=== PATIENT | male | born 1980 | race Caucasian/White ===

== ENCOUNTER 2016-10-06 20:09 | Emergency (ER) | payer MEDICARE, MEDICAID ==
[~2016-10-06 20:09] MED LIST: ABIL15TA2 PO; ADDE15CA PO; ADDE1TAB22 PO; ADDE25CA PO; ALPRTAB4 PO; AMBI10TA PO; BACL10TA2 PO; BUPR150T11 PO; BUTR20DI2 TD; CELE-19 PO; CLONI1TA PO; DEPA500T2 PO; DILA2TAB PO; DOCQ100C PO; DULO30CA PO; FETZ1CAP4 PO; HYDR7.5T38 PO; LIDO5TD TD; LITH300C PO; LYRI200C PO; LYRI300C PO; METH10CO PO; OXYC-208 PO; OXYC-517 PO; OXYC15TA76 PO; PERCOCET PO; PRIS100T PO; SOMA350T PO; STRA18CA PO; TIZA4CAP3 PO; TRAZ50TA2 PO; ULTR50TA PO; XANA1TAB2 PO; XANA2TAB2 PO; ZOFR20TA PO; [UNRECOGNIZED DRUG - CODE] PO
[2016-10-06] MEDS ORDERED: KETOROLAC 30 MG/ML VIAL (J1885) As Ordered ONE (20:54)
[2016-10-06] MEDS ORDERED: METHOCARBAMOL 1,000 MG/10 ML VIAL (J2800) As Ordered ONE (20:54)
--- NOTE | 2016-10-06 21:52 | EDDOCDS ---
Physician Documentation [facility] Name: Michael Jimenez Age: 36 yrs Sex: Male : 1980 Arrival Date: 10/06/2016 Time: 20:09 Bed PR Private MD: Rica Vazquez D Disposition: 10/06/16 21:40 Discharged to Home/Self Care. Impression: Low back pain, Pain in right hand. - Condition is Stable. - Discharge Instructions: Chronic Back Pain, Back Pain, Adult, [id number]. - Prescriptions for Robaxin- 750 750 mg Oral Tablet - take 1 tablet by ORAL route every 6 hours As needed; 40 tablet. - Medication Reconciliation, Local Pharmacy Hours form. - Follow up: Rica Vazquez; When: Call to arrange an appointment; Reason: Further diagnostic work-up, Recheck today's complaints, Continuance of care. - Problem is an acute exacerbation. - Symptoms are unchanged. Historical: - Allergies: Fentanyl"my heart stopped"; Neurontin (legs swell); PENICILLINS (Hives); - Home Meds: 1. Dilaudid (PF) 2 mg/mL injection soln 2 mg every 24 hours via pain pump 2. Adderall XR 25 mg Oral cp24 1 cap twice a day 3. Ambien 10 mg Oral tab 1 tab once daily 4. pregabalin 200 mg Oral cap 3 times per day 5. Xanax 2 mg oral tab at night 6. Xanax 1 mg Oral tab 1 tab AM - PMHx: ADD; Anxiety; RSD; - PSHx: back surgery x 4; Knee surgery- Left; Left Ankle Surgery; - Social history: Smoking status: Patient states former smoker of tobacco. Patient/guardian denies using alcohol, street drugs, No barriers to communication noted, The patient speaks fluent Macanese. - Family history: Not pertinent. - : The pt / caregiver states he / she is not on anticoagulants. Home medication list is obtained from the patient. - Exposure Risk Screening:: None identified. Vital Signs: 10/06 20:10 BP 139 / 84; Pulse 95; Resp 18 S; Temp 97.6(O); Pulse Ox 100% on R/A; Weight 104.33 kg gr2 / 230.01 lbs (R); Height 6 ft. 2 in. (187.96 cm) (R); Pain 9/10; 21:48 BP 150 / 87; Pulse 80; Resp 18; Pulse Ox 100% ; Pain 7/10; slm 21:48 Pain 7/10; slm 21:48 Pain 7/10; slm 20:10 Body Mass Index 29.53 (104.33 kg, 187.96 cm) gr2 MDM: 20:47 ketorolac 30 mg IM once ordered. btw 20:47 Robaxin 250 mg IM once ordered. btw 20:51 Spine. Lumbosacral, Complete Ordered. EDMS 20:51 Hand, Complete Ordered. EDMS 20:54 Financial registration complete. [email or web address] 20:55 [facility] Payment Agreement was scanned into [employer] and attached to record. [email or web address] Administered Medications: 21:00 Drug: ketorolac 30 mg [ketorolac 30 mg/mL (1 mL) injection solution (1 mL)] Route: IM; slm Site: right gluteus; 21:48 Follow up: Pain 7/10 Adult slm 21:00 Drug: Robaxin 250 mg [Robaxin 100 mg/mL injection solution (2.5 mL)] Route: IM; Site: slm left gluteus; 21:48 Follow up: Pain 7/10 Adult slm Signatures: Dispatcher [employer] EDMS Leo Cardenas PA PA btw Karol Caballero,PORTER HEAD PORTER HEAD slm Jaylen Hernandez,RN RN mb9 Maricarmen Jonas, Reg Reg [email or web address] The chart was reviewed and I authenticate all verbal orders and agree with the evaluation and treatment provided.Attachments: 20:55 [facility] Payment Agreement [email or web address] MTDD
--- NOTE | 2016-10-06 21:52 | EDDOCDS ---
Nurse's Notes [facility] Name: Michael Jimenez Age: 36 yrs Sex: Male : 1980 Arrival Date: 10/06/2016 Time: 20:09 Bed PR1 / 25 Private MD: Rica Vazquez D Diagnosis: Low back pain;Pain in right hand Presentation: 10/06 20:20 Presenting complaint: Patient states: "I fell on some ice in front of my house on the mb9 stairs. I hit my spine and my legs hurt and are swollen and I hurt my arm". Adult Sepsis Screening: The patient does not have new or worsening altered mentation. Patient's respiratory rate is less than 22. Systolic blood pressure is greater than 100. Patient has a qSOFA score of 0- Negative Sepsis Screen. Suicide/Homicide risk assessment- the patient denies having any suicidal and/or homicidal ideations and does not present with any other emotional, behavioral or mental health complaints. Status: Patient is not a executive services administrator or dependent. Transition of care: patient was not received from another setting of care. 20:20 Acuity: PONCHO Level 3 mb9 20:20 Method Of Arrival: Walkin/Carried/Asstd mb9 Triage Assessment: 20:24 General: Appears uncomfortable, Behavior is fussy. Pain: Location: right merritt and left mb9 merritt. HIV screening NA for this visit Offered previously. Respiratory: Airway is patent Respiratory effort is even, unlabored. Musculoskeletal: Bony deformity noted of right hand. Historical: - Allergies: Fentanyl"my heart stopped"; Neurontin (legs swell); PENICILLINS (Hives); - Home Meds: 1. Dilaudid (PF) 2 mg/mL injection soln 2 mg every 24 hours via pain pump 2. Adderall XR 25 mg Oral cp24 1 cap twice a day 3. Ambien 10 mg Oral tab 1 tab once daily 4. pregabalin 200 mg Oral cap 3 times per day 5. Xanax 2 mg oral tab at night 6. Xanax 1 mg Oral tab 1 tab AM - PMHx: ADD; Anxiety; RSD; - PSHx: back surgery x 4; Knee surgery- Left; Left Ankle Surgery; - Social history: Smoking status: Patient states former smoker of tobacco. Patient/guardian denies using alcohol, street drugs, No barriers to communication noted, The patient speaks fluent Nepali. - Family history: Not pertinent. - : The pt / caregiver states he / she is not on anticoagulants. Home medication list is obtained from the patient. - Exposure Risk Screening:: None identified. Screenin:49 Screening information is obtained from the patient. Fall risk: No risks identified. slm Assistance ADL's: requires no assistance with activities of daily living. Abuse/DV Screen: The patient / caregiver reports he/she is: not in a situation that causes fear, pain or injury. Nutritional screening: No deficits noted. Advance Directives: Currently, there is no health care proxy. There is no active DNR order. There is no living will. There is no Power of Company Dancer. Advance directive information has not previously been placed in an [facility] medical record. Further advance directive information is declined. home support is adequate. Assessment: 21:49 General: Appears in no apparent distress, comfortable, Behavior is appropriate for age, slm cooperative. General: no distress noted ambulated with steady gait . Neurological: Level of Consciousness is awake, alert, obeys commands. Vital Signs: 20:10 BP 139 / 84; Pulse 95; Resp 18 S; Temp 97.6(O); Pulse Ox 100% on R/A; Weight 104.33 kg gr2 (R); Height 6 ft. 2 in. (187.96 cm) (R); Pain 9/10; 21:48 BP 150 / 87; Pulse 80; Resp 18; Pulse Ox 100% ; Pain 7/10; slm 21:48 Pain 7/10; slm 21:48 Pain 7/10; slm 20:10 Body Mass Index 29.53 (104.33 kg, 187.96 cm) gr2 Vitals: 20:10 Log In Time: October 06, 2016 at 20:10. gr2 ED Course: 20:10 Patient visited by Savanah Crocker. gr2 20:10 Rica Vazquez is Private Physician. gr2 20:10 Patient moved to Waiting gr2 20:11 Patient visited by Savanah Corcker. gr2 20:11 Patient moved to Pre RCE gr2 20:21 Triage Initiated mb9 20:41 Patient moved to Triage 2 m 20:43 Leo Cardenas PA is PHCP. btw 20:43 José Gamboa DO is Attending Physician. btw 20:43 Patient visited by Leo Cardenas PA. btw 20:55 [facility] Payment Agreement was scanned into [employer] and attached to record. [email or web address] 20:58 Patient name changed from Michael\\S\\\\S\\Wetherell\\S\\ to Michael\\S\\ \\S\\Wetherell. EDMS 21:09 Patient moved to TR1 slm 21:13 Patient moved to Radiology aris 21:39 Rica Vazquez is Referral Physician. btw 21:39 Patient moved to PR1 / 25 slm 21:50 No IV's were initiated during this patient's visit. No procedures done that require slm assistance. 21:51 The patient / caregiver is instructed regarding the plan of care and ED course. Patient slm has correct armband on for positive identification. Bed in low position. Call light in reach. Administered Medications: 21:00 Drug: ketorolac 30 mg [ketorolac 30 mg/mL (1 mL) injection solution (1 mL)] Route: IM; slm Site: right gluteus; 21:48 Follow up: Pain 7/10 Adult slm 21:00 Drug: Robaxin 250 mg [Robaxin 100 mg/mL injection solution (2.5 mL)] Route: IM; Site: slm left gluteus; 21:48 Follow up: Pain 7/10 Adult slm Order Results: There are currently no results for this order. Outcome: 21:40 Discharge ordered by Provider. btw 21:50 Discharge Assessment: Patient awake, alert and oriented x 3. No cognitive and/or slm functional deficits noted. Patient verbalized understanding of disposition instructions. patient administered narcotics - no. The following High Risk Discharge criteria are identified: None. Discharged to home ambulatory. Condition: good. Discharge instructions given to patient, Instructed on discharge instructions, follow up and referral plans. medication usage, Demonstrated understanding of instructions, medications, Pt was receptive of discharge instructions/ teaching. Prescriptions given X 1. No special radiology studies were completed. Property :Personal belongings accompany Pt. 21:51 Patient left the ED. slm Signatures: Dispatcher [employer] EDMS Kun Alvarez aris Leo Cardenas PA PA btw Savanah Crocker gr2 Karol CaballeroMARKETING ACCOUNT MANAGER MARKETING ACCOUNT MANAGER slJaylen Handy,RN RN mb9 Maricarmen Jonas, Reg Reg [email or web address] MTDD
--- NOTE | 2016-10-07 08:42 | REP ---
Right hand series: Four views. History: Trauma. Findings: Four views of the right hand show no evidence of fracture, subluxation or opaque foreign body. There are old appearing erosive changes at the second and fifth metacarpophalangeal joint. These are unchanged from the December 03, 2015 prior study. Impression: No acute bony abnormality. Signed by Duke Martinez MD 10/07/2016 02:25 P
--- NOTE | 2016-10-07 08:43 | REP ---
Lumbar spine series: Five views. History: Trauma. Findings: Five views of the lumbar spine are compared with the July 30, 2015 prior study. There is a mild dextroconvex curvature in the lumbar spine. Lumbar vertebral body heights are preserved. Alignment is normal. Disc spaces are maintained. Pedicles and posterior elements are intact. There is no evidence of spondylolysis or spondylolisthesis. Psoas margins are symmetric. There is an electronic device overlying the sacrum on one of the oblique radiographs apparently in the right lower abdomen. SI joints are intact. Impression: Negative lumbar spine series. No fracture seen. Signed by Duke Martinez MD 10/07/2016 02:25 P
--- NOTE | 2016-10-08 22:52 | EDDOCDS ---
Physician Documentation [facility] Name: Michael Jimenez Age: 36 yrs Sex: Male : 1980 Arrival Date: 10/06/2016 Time: 20:09 Bed PR Private MD: Rica Vazquez D Disposition: 10/06/16 21:40 Discharged to Home/Self Care. Impression: Low back pain, Pain in right hand. - Condition is Stable. - Discharge Instructions: Chronic Back Pain, Back Pain, Adult, [id number]. - Prescriptions for Robaxin- 750 750 mg Oral Tablet - take 1 tablet by ORAL route every 6 hours As needed; 40 tablet. - Medication Reconciliation, Local Pharmacy Hours form. - Follow up: Rica Vazquez; When: Call to arrange an appointment; Reason: Further diagnostic work-up, Recheck today's complaints, Continuance of care. - Problem is an acute exacerbation. - Symptoms are unchanged. Historical: - Allergies: Fentanyl"my heart stopped"; Neurontin (legs swell); PENICILLINS (Hives); - Home Meds: 1. Dilaudid (PF) 2 mg/mL injection soln 2 mg every 24 hours via pain pump 2. Adderall XR 25 mg Oral cp24 1 cap twice a day 3. Ambien 10 mg Oral tab 1 tab once daily 4. pregabalin 200 mg Oral cap 3 times per day 5. Xanax 2 mg oral tab at night 6. Xanax 1 mg Oral tab 1 tab AM - PMHx: ADD; Anxiety; RSD; - PSHx: back surgery x 4; Knee surgery- Left; Left Ankle Surgery; - Social history: Smoking status: Patient states former smoker of tobacco. Patient/guardian denies using alcohol, street drugs, No barriers to communication noted, The patient speaks fluent Cymro. - Family history: Not pertinent. - : The pt / caregiver states he / she is not on anticoagulants. Home medication list is obtained from the patient. - Exposure Risk Screening:: None identified. Vital Signs: 10/06 20:10 BP 139 / 84; Pulse 95; Resp 18 S; Temp 97.6(O); Pulse Ox 100% on R/A; Weight 104.33 kg gr2 / 230.01 lbs (R); Height 6 ft. 2 in. (187.96 cm) (R); Pain 9/10; 21:48 BP 150 / 87; Pulse 80; Resp 18; Pulse Ox 100% ; Pain 7/10; slm 21:48 Pain 7/10; slm 21:48 Pain 7/10; slm 20:10 Body Mass Index 29.53 (104.33 kg, 187.96 cm) gr2 MDM: 20:47 ketorolac 30 mg IM once ordered. btw 20:47 Robaxin 250 mg IM once ordered. btw 20:51 Spine. Lumbosacral, Complete Ordered. EDMS 20:51 Hand, Complete Ordered. EDMS 20:54 Financial registration complete. [email or web address] 20:55 [facility] Payment Agreement was scanned into [employer] and attached to record. ks16 10/07 12:22 T-Sheet-- Draft Copy was scanned into [employer] and attached to record. gb Administered Medications: 10/06 21:00 Drug: ketorolac 30 mg [ketorolac 30 mg/mL (1 mL) injection solution (1 mL)] Route: IM; slm Site: right gluteus; 21:48 Follow up: Pain 7/10 Adult slm 21:00 Drug: Robaxin 250 mg [Robaxin 100 mg/mL injection solution (2.5 mL)] Route: IM; Site: slm left gluteus; 21:48 Follow up: Pain 7/10 Adult slm Signatures: Dispatcher [employer] EDMS Funmi Mccullough, Reg Reg gb Leo Cardenas PA PA btw Karol Caballero LPN LPN sl Jaylen Hernandez RN RN mbMaricarmen Fry, Reg Reg ks16 The chart was reviewed and I authenticate all verbal orders and agree with the evaluation and treatment provided.Attachments: 20:55 [facility] Payment Agreement [email or web address] 10/07 12:22 T-Sheet-- Draft Copy gb Chart Complete MTDD
--- NOTE | 2016-10-08 22:52 | EDDOCDS ---
Nurse's Notes [facility] Name: Michael Jimenez Age: 36 yrs Sex: Male : 1980 Arrival Date: 10/06/2016 Time: 20:09 Bed PR1 / 25 Private MD: Rica Vazquez D Diagnosis: Low back pain;Pain in right hand Presentation: 10/06 20:20 Presenting complaint: Patient states: "I fell on some ice in front of my house on the mb9 stairs. I hit my spine and my legs hurt and are swollen and I hurt my arm". Adult Sepsis Screening: The patient does not have new or worsening altered mentation. Patient's respiratory rate is less than 22. Systolic blood pressure is greater than 100. Patient has a qSOFA score of 0- Negative Sepsis Screen. Suicide/Homicide risk assessment- the patient denies having any suicidal and/or homicidal ideations and does not present with any other emotional, behavioral or mental health complaints. Status: Patient is not a meter and service line inspector or dependent. Transition of care: patient was not received from another setting of care. 20:20 Acuity: PONCHO Level 3 mb9 20:20 Method Of Arrival: Walkin/Carried/Asstd mb9 Triage Assessment: 20:24 General: Appears uncomfortable, Behavior is fussy. Pain: Location: right merritt and left mb9 merritt. HIV screening NA for this visit Offered previously. Respiratory: Airway is patent Respiratory effort is even, unlabored. Musculoskeletal: Bony deformity noted of right hand. Historical: - Allergies: Fentanyl"my heart stopped"; Neurontin (legs swell); PENICILLINS (Hives); - Home Meds: 1. Dilaudid (PF) 2 mg/mL injection soln 2 mg every 24 hours via pain pump 2. Adderall XR 25 mg Oral cp24 1 cap twice a day 3. Ambien 10 mg Oral tab 1 tab once daily 4. pregabalin 200 mg Oral cap 3 times per day 5. Xanax 2 mg oral tab at night 6. Xanax 1 mg Oral tab 1 tab AM - PMHx: ADD; Anxiety; RSD; - PSHx: back surgery x 4; Knee surgery- Left; Left Ankle Surgery; - Social history: Smoking status: Patient states former smoker of tobacco. Patient/guardian denies using alcohol, street drugs, No barriers to communication noted, The patient speaks fluent Wolof. - Family history: Not pertinent. - : The pt / caregiver states he / she is not on anticoagulants. Home medication list is obtained from the patient. - Exposure Risk Screening:: None identified. Screenin:49 Screening information is obtained from the patient. Fall risk: No risks identified. slm Assistance ADL's: requires no assistance with activities of daily living. Abuse/DV Screen: The patient / caregiver reports he/she is: not in a situation that causes fear, pain or injury. Nutritional screening: No deficits noted. Advance Directives: Currently, there is no health care proxy. There is no active DNR order. There is no living will. There is no Power of Marine Rigger. Advance directive information has not previously been placed in an [facility] medical record. Further advance directive information is declined. home support is adequate. Assessment: 21:49 General: Appears in no apparent distress, comfortable, Behavior is appropriate for age, slm cooperative. General: no distress noted ambulated with steady gait . Neurological: Level of Consciousness is awake, alert, obeys commands. Vital Signs: 20:10 BP 139 / 84; Pulse 95; Resp 18 S; Temp 97.6(O); Pulse Ox 100% on R/A; Weight 104.33 kg gr2 (R); Height 6 ft. 2 in. (187.96 cm) (R); Pain 9/10; 21:48 BP 150 / 87; Pulse 80; Resp 18; Pulse Ox 100% ; Pain 7/10; slm 21:48 Pain 7/10; slm 21:48 Pain 7/10; slm 20:10 Body Mass Index 29.53 (104.33 kg, 187.96 cm) gr2 Vitals: 20:10 Log In Time: October 06, 2016 at 20:10. gr2 ED Course: 20:10 Patient visited by Savanah Crocker. gr2 20:10 Rica Vazquez is Private Physician. gr2 20:10 Patient moved to Waiting gr2 20:11 Patient visited by Savanah Crocker. gr2 20:11 Patient moved to Pre RCE gr2 20:21 Triage Initiated mb9 20:41 Patient moved to Triage 2 m 20:43 Leo Cardenas PA is PHCP. btw 20:43 José Gamboa DO is Attending Physician. btw 20:43 Patient visited by Leo Cardenas PA. btw 20:55 [facility] Payment Agreement was scanned into [employer] and attached to record. ks16 20:58 Patient name changed from Michael\\S\\\\S\\Wetherell\\S\\ to Michael\\S\\ \\S\\Wetherell. EDMS 21:09 Patient moved to TR1 slm 21:13 Patient moved to Radiology aris 21:39 Rica Vazquez is Referral Physician. btw 21:39 Patient moved to PR1 / 25 slm 21:50 No IV's were initiated during this patient's visit. No procedures done that require slm assistance. 21:51 The patient / caregiver is instructed regarding the plan of care and ED course. Patient slm has correct armband on for positive identification. Bed in low position. Call light in reach. 02/06 08:57 Hand, Complete Returned. EDMS 08:57 Spine. Lumbosacral, Complete Returned. EDMS 12:22 T-Sheet-- Draft Copy was scanned into [employer] and attached to record. gb Administered Medications: 0205 21:00 Drug: ketorolac 30 mg [ketorolac 30 mg/mL (1 mL) injection solution (1 mL)] Route: IM; slm Site: right gluteus; 21:48 Follow up: Pain 7/10 Adult slm 21:00 Drug: Robaxin 250 mg [Robaxin 100 mg/mL injection solution (2.5 mL)] Route: IM; Site: slm left gluteus; 21:48 Follow up: Pain 7/10 Adult slm Order Results: Radiology Order: Spine. Lumbosacral, Complete Test: Spine. Lumbosacral, Complete REASON FOR EXAMINATION: Trauma; Lumbar spine series: Five views.; ; History: Trauma.; ; Findings: Five views of the lumbar spine are compared with the July 30, 2015; prior study. There is a mild dextroconvex curvature in the lumbar spine. Lumbar; vertebral body heights are preserved. Alignment is normal. Disc spaces are; maintained. Pedicles and posterior elements are intact. There is no evidence of; spondylolysis or spondylolisthesis. Psoas margins are symmetric. There is an; electronic device overlying the sacrum on one of the oblique radiographs; apparently in the right lower abdomen. SI joints are intact.; ; Impression:; ; Negative lumbar spine series. No fracture seen.; ; ; Signed by; Duke Martinez MD 10/07/2016 02:25 P; Radiology Order: Hand, Complete Test: Hand, Complete REASON FOR EXAMINATION: Trauma; Right hand series: Four views.; ; History: Trauma.; ; Findings: Four views of the right hand show no evidence of fracture, subluxation; or opaque foreign body. There are old appearing erosive changes at the second; and fifth metacarpophalangeal joint. These are unchanged from the December 03, 2015; prior study.; ; Impression:; ; No acute bony abnormality.; ; ; Signed by; Duke Martinez MD 10/07/2016 02:25 P; Outcome: 21:40 Discharge ordered by Provider. btw 21:50 Discharge Assessment: Patient awake, alert and oriented x 3. No cognitive and/or slm functional deficits noted. Patient verbalized understanding of disposition instructions. patient administered narcotics - no. The following High Risk Discharge criteria are identified: None. Discharged to home ambulatory. Condition: good. Discharge instructions given to patient, Instructed on discharge instructions, follow up and referral plans. medication usage, Demonstrated understanding of instructions, medications, Pt was receptive of discharge instructions/ teaching. Prescriptions given X 1. No special radiology studies were completed. Property :Personal belongings accompany Pt. 21:51 Patient left the ED. slm Signatures: Dispatcher [employer] EDMS Kun Alvarez Gloria, Reg Reg gb Leo Cardenas PA PA btw Savanah Crocker gr2 Karol Caballero LPN LPN [facility] Jaylen Hernandez,CASTILLO RN mb9 Maricarmen Jonas, Reg Reg [email or web address] Chart Complete MTDD
--- NOTE | 2016-10-08 22:52 | EDDOCDS ---
Physician Documentation [facility] Name: Michael Jimenez Age: 36 yrs Sex: Male : 1980 Arrival Date: 10/06/2016 Time: 20:09 Bed PR Private MD: Rica Vazquez D Disposition: 10/06/16 21:40 Discharged to Home/Self Care. Impression: Low back pain, Pain in right hand. - Condition is Stable. - Discharge Instructions: Chronic Back Pain, Back Pain, Adult, [id number]. - Prescriptions for Robaxin- 750 750 mg Oral Tablet - take 1 tablet by ORAL route every 6 hours As needed; 40 tablet. - Medication Reconciliation, Local Pharmacy Hours form. - Follow up: Rica Vazquez; When: Call to arrange an appointment; Reason: Further diagnostic work-up, Recheck today's complaints, Continuance of care. - Problem is an acute exacerbation. - Symptoms are unchanged. Historical: - Allergies: Fentanyl"my heart stopped"; Neurontin (legs swell); PENICILLINS (Hives); - Home Meds: 1. Dilaudid (PF) 2 mg/mL injection soln 2 mg every 24 hours via pain pump 2. Adderall XR 25 mg Oral cp24 1 cap twice a day 3. Ambien 10 mg Oral tab 1 tab once daily 4. pregabalin 200 mg Oral cap 3 times per day 5. Xanax 2 mg oral tab at night 6. Xanax 1 mg Oral tab 1 tab AM - PMHx: ADD; Anxiety; RSD; - PSHx: back surgery x 4; Knee surgery- Left; Left Ankle Surgery; - Social history: Smoking status: Patient states former smoker of tobacco. Patient/guardian denies using alcohol, street drugs, No barriers to communication noted, The patient speaks fluent Spanish. - Family history: Not pertinent. - : The pt / caregiver states he / she is not on anticoagulants. Home medication list is obtained from the patient. - Exposure Risk Screening:: None identified. Vital Signs: 10/06 20:10 BP 139 / 84; Pulse 95; Resp 18 S; Temp 97.6(O); Pulse Ox 100% on R/A; Weight 104.33 kg gr2 / 230.01 lbs (R); Height 6 ft. 2 in. (187.96 cm) (R); Pain 9/10; 21:48 BP 150 / 87; Pulse 80; Resp 18; Pulse Ox 100% ; Pain 7/10; slm 21:48 Pain 7/10; slm 21:48 Pain 7/10; slm 20:10 Body Mass Index 29.53 (104.33 kg, 187.96 cm) gr2 MDM: 20:47 ketorolac 30 mg IM once ordered. btw 20:47 Robaxin 250 mg IM once ordered. btw 20:51 Spine. Lumbosacral, Complete Ordered. EDMS 20:51 Hand, Complete Ordered. EDMS 20:54 Financial registration complete. [email or web address] 20:55 [facility] Payment Agreement was scanned into [employer] and attached to record. [email or web address] 10/07 12:22 T-Sheet-- Draft Copy was scanned into [employer] and attached to record. gb Administered Medications: 10/06 21:00 Drug: ketorolac 30 mg [ketorolac 30 mg/mL (1 mL) injection solution (1 mL)] Route: IM; slm Site: right gluteus; 21:48 Follow up: Pain 7/10 Adult slm 21:00 Drug: Robaxin 250 mg [Robaxin 100 mg/mL injection solution (2.5 mL)] Route: IM; Site: slm left gluteus; 21:48 Follow up: Pain 7/10 Adult slm Signatures: Dispatcher [employer] EDMS Funmi Mccullough, Reg Reg gb Leo Cardenas PA PA btw Karol Caballero LPN LPN sl Jaylen Hernandez RN RN mbMaricarmen Fry, Reg Reg [email or web address] The chart was reviewed and I authenticate all verbal orders and agree with the evaluation and treatment provided.Attachments: 20:55 [facility] Payment Agreement [email or web address] 10/07 12:22 T-Sheet-- Draft Copy gb Chart Complete MTDD
== END 2016-10-06 21:51 | disposition home or self-care (01) ==
LOC: M ED 20:09
DX: M25.541 Pain in joints of right hand (principal); M54.5 Low back pain; W00.1XXA Fall from stairs and steps due to ice and snow, initial encounter; Y92.096 Garden or yard of other non-institutional residence as the place of occurrence of the external cause; Y93.89 Activity, other specified; Y99.8 Other external cause status; F90.8 Attention-deficit hyperactivity disorder, other type; F41.9 Anxiety disorder, unspecified; G90.50 Complex regional pain syndrome I, unspecified; Z79.899 Other long term (current) drug therapy; Z79.891 Long term (current) use of opiate analgesic; Z88.8 Allergy status to other drugs, medicaments and biological substances; Z88.0 Allergy status to penicillin; F17.210 Nicotine dependence, cigarettes, uncomplicated
CPT/HCPCS: 72110; 73130; 96372; 99283; J1885; J2800

== ENCOUNTER 2016-12-03 09:30 | Emergency (ER) | payer MEDICARE, MEDICAID ==
[~2016-12-03] VITALS: Ht 188 cm; Wt 95.7 kg
[2016-12-03] MEDS ORDERED: ALPR2TAB3 PO (09:47)
[2016-12-03] MEDS ORDERED: DILA1LIQ IT (09:52)
[2016-12-03] MEDS ORDERED: ACETAMINOPHEN TAB 650MG DOSE (2X325MG) PO ONE (10:00)
[2016-12-03] MEDS: ALBUTEROL SULFATE 2.5 MG/0.5 ML INH NEB SOLN NEB PRN ×3 (10:13→11:27)
[2016-12-03 10:21] LABS: BASO % 0.3 % (0.0-1.0); EOS # 0.4 K/mm3 (0.0-0.50); EOS % 2.7 % (0.0-3.0); LARGE UNSTAINED CELL # 0.1 K/mm3 (0.0-0.4); LARGE UNSTAINED CELL % 0.9 % (0.0-4.0); LYMPH # 1.4 K/mm3 (1.5-4.5); LYMPH % 9.4 % (24.0-44.0); MEAN CORPUSCULAR HEMOGLOBIN 32.9 pg (27.0-33.0); MEAN CORPUSCULAR HGB CONC 34.1 g/dl (32.0-36.5); MEAN CORPUSCULAR VOLUME 96.5 fl (80.0-96.0); MONO # 0.8 K/mm3 (0.0-0.8); MONO % 5.8 % (0.0-5.0); NEUTROPHILS # 10.6 K/mm3 (1.8-7.7); NEUTROPHILS % 80.8 % (36.0-66.0); PLATELET COUNT, AUTOMATED 199 k/mm3 (150-450); RED CELL DISTRIBUTION WIDTH 12.8 % (11.5-14.5); WHITE BLOOD COUNT 13.1 K/mm3 (4.0-10.0)
[2016-12-03 10:37] LABS: ANION GAP 7 MEQ/L (8-16); BLOOD UREA NITROGEN 15 MG/DL (7-18); CALCIUM LEVEL 8.9 MG/DL (8.5-10.1); CARBON DIOXIDE LEVEL 26 MEQ/L (21-32); CHLORIDE LEVEL 105 MEQ/L (98-107); CREATININE FOR GFR 0.95 MG/DL (0.70-1.30); GLOMERULAR FILTRATION RATE > 60.0 (>60); GLUCOSE, FASTING 108 MG/DL (70-105); POTASSIUM SERUM 3.5 MEQ/L (3.5-5.1); SODIUM LEVEL 138 MEQ/L (136-145)
[2016-12-03] MEDS ORDERED: methylPREDNISolone INJ 125 MG/2 ML VIAL (J2930) IV ONE (11:00)
[2016-12-03] MEDS ORDERED: NS 500 ML IV ONE (11:00)
--- NOTE | 2016-12-03 11:06 | REP ---
PORTABLE CHEST: AP portable view of the chest is performed. There is no acute infiltrate. The heart is not significantly enlarged. The mediastinal silhouette is unremarkable and unchanged. IMPRESSION: No acute infiltrate. Signed by Clifford Wisdom MD 12/03/2016 04:37 P
[2016-12-03] MEDS ORDERED: ISOVUE-370 76% 100ML VIAL (Q9967) As Ordered ONE (11:17)
--- NOTE | 2016-12-03 12:10 | REP ---
CT of the chest CT pulmonary angiography: Comparison studies are the chest CT dated 01/04/2016 and 04/14/2011. There is no embolus in the pulmonary trunk or in the central pulmonary arteries. There are no emboli in the pulmonary lobe or segment branches. There are no infiltrates or effusions. There is a minor zone of scarring in the deep posterior sulcus of the left hemithorax, unchanged from 04/14/2011. There is no mediastinal, hilar or axillary lymph node enlargement. The thoracic aorta is unremarkable. Cardiac size is normal. There is no pericardial effusion. The visualized upper abdominal contents are unremarkable. Impression: There is no pulmonary embolus. Lung zamora are clear except for a small focal zone of parenchymal scarring in the deep sulcus of the left lower lobe, unchanged from 04/14/2011. There are no pleural effusions. No adenopathy. No masses. Signed by Clifford Lockwood MD 12/03/2016 12:01 P
[2016-12-03] MEDS ORDERED: PROA1AER INH (13:22)
[2016-12-03] MEDS ORDERED: [UNRECOGNIZED DRUG - CODE] PO (13:23)
[2016-12-03 13:40] VITALS: BP 122/73
--- NOTE | 2016-12-04 21:31 | ECGEPIP ---
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
== END 2016-12-03 13:54 | disposition home or self-care (01) ==
LOC: M ED 10:20
DX: J06.9 Acute upper respiratory infection, unspecified (principal); F31.9 Bipolar disorder, unspecified; F41.9 Anxiety disorder, unspecified; G90.50 Complex regional pain syndrome I, unspecified; Z87.891 Personal history of nicotine dependence
CPT/HCPCS: 36415; 71010; 71275; 80048; 83605; 83880; 85025; 87040; 87804; 93005; 93041; 94640; 94760; 96361; 96374; 99285; J2930; Q9967

== ENCOUNTER 2016-12-21 12:14 | Emergency (ER) | payer MEDICARE, MEDICAID ==
[~2016-12-21] VITALS: Ht 188 cm; Wt 95.3 kg
[~2016-12-21 12:14] MED LIST changes: +ALPR2TAB3 PO; +DILA1LIQ IT; +PROA1AER INH; +[UNRECOGNIZED DRUG - CODE] PO
[2016-12-21] MEDS ORDERED: TYLE325T5 PO (12:26)
[2016-12-21] MEDS ORDERED: IBUP-1114 PO (12:26)
[2016-12-21] MEDS ORDERED: HYDROmorphone HCL 1 MG/ML SYRINGE (J1170) IM ONE (13:15)
--- NOTE | 2016-12-21 14:06 | REP ---
Right hand four views: There is a small bone cyst in the triquetrum. There is no fracture or dislocation. Mineralization and joint spaces are normal. There are no calcifications or foreign bodies. Impression: Negative right hand. There is a small bone cyst in the triquetrum ossicle. Signed by Clifford Lockwood MD 12/21/2016 01:57 P
[2016-12-21 14:15] VITALS: BP 118/86
== END 2016-12-21 14:23 | disposition home or self-care (01) ==
LOC: M ED 12:56
DX: S63.91XA Sprain of unspecified part of right wrist and hand, initial encounter (principal); W19.XXXA Unspecified fall, initial encounter; Y92.410 Unspecified street and highway as the place of occurrence of the external cause; Y93.9 Activity, unspecified; Y99.9 Unspecified external cause status; G89.29 Other chronic pain; F17.200 Nicotine dependence, unspecified, uncomplicated; Z79.899 Other long term (current) drug therapy; Z91.013 Allergy to seafood; Z91.018 Allergy to other foods; Z88.2 Allergy status to sulfonamides; Z88.0 Allergy status to penicillin; Z88.8 Allergy status to other drugs, medicaments and biological substances
CPT/HCPCS: 73130; 96372; 99282; J1170

== ENCOUNTER → 2017-01-14 | Outpatient (CLI) | payer MEDICARE, MEDICAID ==
[~2017-01-14] MED LIST changes: +IBUP-1114 PO; +TYLE325T5 PO
--- NOTE | 2017-01-14 18:39 | REP ---
Clinical: Back pain. Bulging discs. Technique: Axial contrast enhanced images from mid C6 through mid L1 with coronal and sagittal re-formations. Findings: Thoracic vertebral bodies are intact, normal and without acute fracture / compression injury or subluxation. Alignment and kyphosis maintained. Spinal canal is patent and normal. No obvious disc bulge or herniation appreciated by noncontrast CT evaluation. Incidental note is made of a presumed epidural catheter extending from the lumbar region and terminating at the T12 level Impression: Age-appropriate thoracic spine CT. No obvious disc herniation/bulge appreciated. If the patient remains symptomatic consider MRI for further, more definitive sensitive evaluation. Signed by Jerry Harley MD 01/14/2017 06:30 P
--- NOTE | 2017-01-14 18:41 | REP ---
Clinical: Back pain. Disc bulge. Technique: Axial noncontrast images from the mid T12 level through the mid sacrum with coronal and sagittal re-formations. Findings: Alignment and lordosis maintained. There is no evidence for acute fracture / compression injury or subluxation. No evidence for spondylolysis. Small posterior disc bulge at the L4-5 and L5-S1 levels are suggested with subtle effacement along the anterior margin of the thecal sac at the L4-5 level. Remainder examination appears relatively normal for age. Incidental note is made of an epidural catheter terminating at the T12 level. Impression: Subtle posterior disc bulges at the L4-5 > L5-S1 levels with mild effacement of the anterior thecal sac at L4-5. Signed by Jerry Harley MD 01/14/2017 06:32 P
== END ==
LOC: M RAD 17:42
PROVIDERS: ATTEND Anesthesiology
DX: M51.26 Other intervertebral disc displacement, lumbar region (principal)

== ENCOUNTER 2017-02-23 09:10 | Emergency (ER) | payer MEDICARE, MEDICAID ==
[~2017-02-23] VITALS: Ht 180.3 cm; Wt 97.7 kg
[~2017-02-23 09:10] MED LIST changes: -ABIL15TA2 PO; +ABIL1TAB12 PO; -ADDE15CA PO; +ADDE15CA3 PO; +BUTR20DI TD; -BUTR20DI2 TD; -CELE-19 PO; +CELE1CAP4 PO; -DILA1LIQ IT; +DILA1LIQ2 IT; -PROA1AER INH; +PROAAER10 INH
[2017-02-23] MEDS ORDERED: ALPRTAB5 PO (09:28)
[2017-02-23] MEDS ORDERED: LYRI200C PO (09:28)
[2017-02-23] MEDS ORDERED: ADDE30CA3 PO (09:28)
[2017-02-23] MEDS ORDERED: ALPR2TAB5 PO (09:28)
[2017-02-23] MEDS ORDERED: KETOROLAC 60 MG/2 ML VIAL (J1885) IM ONE (10:15)
[2017-02-23] MEDS ORDERED: LIDOCAINE W/EPINEPHRINE 1% 20ML VIAL SC ONE (10:15)
[2017-02-23 11:16] VITALS: BP 121/74
--- NOTE | 2017-02-23 11:33 | REP ---
LEFT ANKLE COMPLETE: 02/23/2017 CLINICAL HISTORY: Left ankle injury. COMPARISON: 10/30/2014 FINDINGS: Four view show the mortise joint symmetric and preserved. There is no talar dome osteochondral defect. There is no visible or displaced fracture in the distal tibia or fibula. In the soft tissues of the distal calf anterolaterally is a 6 mm subcutaneous linear metal foreign body unchanged from 2 years ago. Lateral view shows subtalar joints intact. There is a sclerotic focus representing bone island in the anterior process of the calcaneus. No heel spurs. Talonavicular and calcaneocuboid joints are intact. No other findings. IMPRESSION: 1. The mortise joint preserved without disruption and no fracture, avulsion, subtalar joint abnormality or other acute finding. 2. Bone island in the calcaneus and a subcutaneous linear metallic foreign body anterolateral aspect of the lower leg, unchanged. Signed by Ben Hendrix MD 02/23/2017 07:33 P
[2017-07-05] MEDS ORDERED: ABIL1TAB12 PO (18:35)
== END 2017-02-23 11:21 | disposition home or self-care (01) ==
LOC: EDBD 09:10 → EDSEX 09:10 → M ED 11:12
DX: S93.402A Sprain of unspecified ligament of left ankle, initial encounter (principal); S91.012A Laceration without foreign body, left ankle, initial encounter; W22.8XXA Striking against or struck by other objects, initial encounter; Y92.099 Unspecified place in other non-institutional residence as the place of occurrence of the external cause; Y93.9 Activity, unspecified; Y99.9 Unspecified external cause status; F31.9 Bipolar disorder, unspecified; F90.9 Attention-deficit hyperactivity disorder, unspecified type; G90.50 Complex regional pain syndrome I, unspecified; Z79.899 Other long term (current) drug therapy; Z88.0 Allergy status to penicillin; Z88.5 Allergy status to narcotic agent; Z88.8 Allergy status to other drugs, medicaments and biological substances; Z91.013 Allergy to seafood; Z91.018 Allergy to other foods
CPT/HCPCS: 12001; 73610; 96372; 99283; J1885

== ENCOUNTER 2017-04-10 19:55 | Emergency (ER) | payer MEDICARE, MEDICAID ==
[~2017-04-10] VITALS: Ht 188 cm; Wt 116.8 kg
[~2017-04-10 19:55] MED LIST changes: +ADDE30CA3 PO; +ALPR2TAB5 PO; +ALPRTAB5 PO
[2017-04-10] MEDS ORDERED: NORT50CA PO (20:12)
[2017-04-10 20:57] LABS: BASO % 0.5 % (0.0-1.0); EOS # 0.4 K/mm3 (0.0-0.50); LARGE UNSTAINED CELL # 0.1 K/mm3 (0.0-0.4); LARGE UNSTAINED CELL % 1.5 % (0.0-4.0); LYMPH # 3.7 K/mm3 (1.5-4.5); LYMPH % 41.5 % (24.0-44.0); MEAN CORPUSCULAR HEMOGLOBIN 33.7 pg (27.0-33.0); MEAN CORPUSCULAR HGB CONC 34.5 g/dl (32.0-36.5); MEAN CORPUSCULAR VOLUME 97.7 fl (80.0-96.0); MONO # 0.5 K/mm3 (0.0-0.8); MONO % 5.6 % (0.0-5.0); NEUTROPHILS # 4.1 K/mm3 (1.8-7.7); NEUTROPHILS % 46.9 % (36.0-66.0); PLATELET COUNT, AUTOMATED 209 k/mm3 (150-450); RED CELL DISTRIBUTION WIDTH 13.4 % (11.5-14.5); WHITE BLOOD COUNT 8.6 K/mm3 (4.0-10.0)
[2017-04-10] MEDS ORDERED: KETOROLAC 30 MG/ML VIAL (J1885) IV ONE (21:00)
[2017-04-10 21:02] LABS: INR 0.89
[2017-04-10 21:22] LABS: ALBUMIN 3.9 GM/DL (3.2-5.2); ALBUMIN/GLOBULIN RATIO 1.15 (1.00-1.93); ALKALINE PHOSPHATASE 159 U/L (45-117); ALT/SGPT 34 U/L (12-78); AMYLASE 34 U/L (25-115); ANION GAP 7 MEQ/L (8-16); AST/SGOT 26 U/L (15-37); BILIRUBIN,DIRECT < 0.1 MG/DL (0.0-0.2); BILIRUBIN,TOTAL 0.2 MG/DL (0.2-1.0); BLOOD UREA NITROGEN 19 MG/DL (7-18); CALCIUM LEVEL 8.7 MG/DL (8.5-10.1); CARBON DIOXIDE LEVEL 25 MEQ/L (21-32); CHLORIDE LEVEL 112 MEQ/L (98-107); CREATININE FOR GFR 1.04 MG/DL (0.70-1.30); GLOMERULAR FILTRATION RATE > 60.0 (>60); GLUCOSE, FASTING 101 MG/DL (70-105); POTASSIUM SERUM 3.8 MEQ/L (3.5-5.1); SODIUM LEVEL 144 MEQ/L (136-145); TOTAL PROTEIN 7.3 GM/DL (6.4-8.2)
[2017-04-10] MEDS ORDERED: ISOVUE-370 76% 100ML VIAL (Q9967) As Ordered ONE (21:43)
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
[2017-04-11 03:54] VITALS: BP 132/90
--- NOTE | 2017-04-11 06:44 | ED PDOC ---
Post-Departure Follow-Up dr molina faxed formal report of ct c spine and mri c spine. Armand Tijerina MD Apr 11, 2017 06:44
--- NOTE | 2017-04-11 08:12 | REP ---
Bilateral ankles: Left ankle four views: Comparison is 10/30/2014. Mineralization and joint spaces are normal. There is no fracture or dislocation. There is a sclerotic density anteriorly in the calcaneus , unchanged from the prior study, likely an enchondroma. There is no fracture or dislocation. No effusion. Otherwise, negative left ankle. Impression: No interval change. Right ankle four views: Mineralization and joint spaces are normal. There is no fracture or dislocation. No calcifications or foreign bodies. Impression: Negative right ankle. Sign taking Signed by Clifford Lockwood MD 04/11/2017 08:04 A
[2017-07-05] MEDS ORDERED: ABIL1TAB12 PO (18:35)
== END 2017-04-11 04:14 | disposition home or self-care (01) ==
LOC: M ED 19:55 → EDBD 19:55 → M ED 04-11 04:14
DX: S16.1XXA Strain of muscle, fascia and tendon at neck level, initial encounter (principal); S10.93XA Contusion of unspecified part of neck, initial encounter; V19.9XXA Pedal cyclist (driver) (passenger) injured in unspecified traffic accident, initial encounter; Y92.410 Unspecified street and highway as the place of occurrence of the external cause; Y93.9 Activity, unspecified; Y99.9 Unspecified external cause status; G89.29 Other chronic pain; M54.9 Dorsalgia, unspecified; F17.200 Nicotine dependence, unspecified, uncomplicated; Z79.899 Other long term (current) drug therapy; Z88.0 Allergy status to penicillin; Z88.8 Allergy status to other drugs, medicaments and biological substances; Z88.5 Allergy status to narcotic agent; Z91.013 Allergy to seafood; Z91.018 Allergy to other foods
CPT/HCPCS: 70450; 71260; 72125; 72128; 72131; 72141; 73610; 74177; 80048; 80076; 82150; 83690; 85025; 85610; 85730; 96374; 99284; J1885; Q9967

== ENCOUNTER 2017-05-07 16:07 | Emergency (ER) | payer MEDICARE, MEDICAID ==
[~2017-05-07] VITALS: Ht 188 cm; Wt 108.1 kg
[~2017-05-07 16:07] MED LIST changes: +NORT50CA PO
[2017-05-07] MEDS ORDERED: NS 1,000 ML IV ONE (17:15)
[2017-05-07] MEDS ORDERED: HYDROmorphone HCL 1 MG/ML SYRINGE (J1170) IV ONE ×2 (17:15→19:30)
[2017-05-07] MEDS ORDERED: ONDANSETRON 4MG/2ML VIAL (J2405) IV ONE (17:15)
[2017-05-07 17:22] LABS: BASO % 0.3 % (0.0-1.0); EOS # 0.1 K/mm3 (0.0-0.50); EOS % 1.2 % (0.0-3.0); LARGE UNSTAINED CELL # 0.1 K/mm3 (0.0-0.4); LARGE UNSTAINED CELL % 1.7 % (0.0-4.0); LYMPH # 1.6 K/mm3 (1.5-4.5); LYMPH % 25.3 % (24.0-44.0); MEAN CORPUSCULAR HEMOGLOBIN 34.9 pg (27.0-33.0); MEAN CORPUSCULAR HGB CONC 35.7 g/dl (32.0-36.5); MEAN CORPUSCULAR VOLUME 97.9 fl (80.0-96.0); MONO # 0.4 K/mm3 (0.0-0.8); MONO % 5.4 % (0.0-5.0); NEUTROPHILS # 4.3 K/mm3 (1.8-7.7); PLATELET COUNT, AUTOMATED 247 k/mm3 (150-450); WHITE BLOOD COUNT 6.5 K/mm3 (4.0-10.0)
[2017-05-07 17:28] LABS: CONTROL LINE MONO INT CTR LINE PRESENT
[2017-05-07 17:31] LABS: ALBUMIN 4.4 GM/DL (3.2-5.2); ALBUMIN/GLOBULIN RATIO 1.07 (1.00-1.93); ALKALINE PHOSPHATASE 141 U/L (45-117); ALT/SGPT 93 U/L (12-78); ANION GAP 9 MEQ/L (8-16); AST/SGOT 37 U/L (15-37); BILIRUBIN,DIRECT 0.1 MG/DL (0.0-0.2); BILIRUBIN,TOTAL 0.5 MG/DL (0.2-1.0); BLOOD UREA NITROGEN 12 MG/DL (7-18); CALCIUM LEVEL 9.4 MG/DL (8.5-10.1); CARBON DIOXIDE LEVEL 27 MEQ/L (21-32); CHLORIDE LEVEL 104 MEQ/L (98-107); CREATININE FOR GFR 0.88 MG/DL (0.70-1.30); GLOMERULAR FILTRATION RATE > 60.0 (>60); GLUCOSE, FASTING 113 MG/DL (70-105); SODIUM LEVEL 140 MEQ/L (136-145); TOTAL PROTEIN 8.5 GM/DL (6.4-8.2)
--- NOTE | 2017-05-07 17:32 | REP ---
Head CT without contrast: History: Fever. Headache. Comparison study: April 10, 2017. CT findings: Bone window settings demonstrate an intact bony calvarium. There is no evidence of skull fracture or incidental bony calvarial lesion. The visualized paranasal sinuses appear clear. No intraorbital abnormality is seen. On soft tissue window setting images; the lateral, third, and fourth ventricles are normal in size and position. Wisdom-white differentiation pattern is normal above and below the tentorium. There are is no evidence of intracranial hemorrhage. No mass, edema, infarction, or midline shift is seen. No extra-axial fluid collection is appreciated. Impression: Negative noncontrast head CT. Signed by Duke Martinez MD 05/07/2017 05:24 P
--- NOTE | 2017-05-07 17:39 | REP ---
Chest x-ray: Two views. History: Shortness of breath. . Comparison study: December 03, 2016 from [facility]. . Findings: The lungs are well inflated and free of infiltrate. The pleural angles are sharp. The heart size is normal. Pulmonary vasculature is not increased. No significant bony abnormality is seen. Impression: Negative chest x-ray. Signed by Duke Martinez MD 05/07/2017 05:31 P
--- NOTE | 2017-05-07 18:26 | REP ---
Right upper quadrant sonography: History: Right upper quadrant pain and vomiting. Evaluate for cholecystitis. Findings: Scan quality is somewhat inhibited by patient's inability to suspend respirations. The gallbladder appears mildly dilated measuring up to 9.6 cm. Its wall is thin and no stone or polyp is seen. Common bile duct is normal measuring 0.5 cm in greatest diameter. No focal liver lesion is seen. The pancreas is obscured by abdominal gas. No free fluid is seen. The right kidney is unremarkable measuring 11.0 x 4.7 x 5.1 cm. Impression: Mildly dilated gallbladder. Otherwise unremarkable right upper quadrant sonography. Normal CBD, 5 mm. Pancreas is obscured. Signed by Duke Martinez MD 05/07/2017 06:42 P
[2017-05-07] MEDS ORDERED: GASTROGRAFIN SOLUTION 30ML PO ONE (18:40)
[2017-05-07] MEDS ORDERED: GASTROGRAFIN SOLUTION 30ML (Q9963) PO ONE (19:10)
[2017-05-07] MEDS ORDERED: ISOVUE-370 76% 100ML VIAL (Q9967) As Ordered ONE (19:38)
--- NOTE | 2017-05-07 21:00 | REPUSA ---
HISTORY: ABD PAIN, VOMITING. TECHNIQUE: Axial CT imaging of abdomen and pelvis with coronal and sagittal reformatted imaging, with oral contrast and with intravenous contrast. DLP= 859.2 mGy-cm . FINDINGS: Lung bases are clear. Bone windows demonstrate no fracture or destructive bony lesion in t he abdomen and pelvis. The liver, biliary tree, gallbladder, spleen, pancreas, adrenal glands, abdominal aorta, IVC, and ret roperitoneal structures are normal. Both kidneys function without evidence of mass lesion, calcifica tion, or obstruction in the ureters and urinary bladder are normal. No pelvic mass lesions or abnormal peritoneal fluid collections are seen. A battery pack artifact is noted over the right lower anterior abdominal wall. There is a small fat-containing left inguinal h ernia. No other abdominal wall hernia seen. The bowel appears normal with no evidence of bowel wall mass lesion, obstruction, perforation, inflammatory reaction, or evidence of diverticulitis. Append ix is not not visualized and there is no indirect evidence of appendicitis. IMPRESSION: 1. Small fat-containing left inguinal hernia. 2. Otherwise, negative CT examination of abdomen and pelvis with no pathologic mass or bowel abnorma lity seen.
[2017-05-07] MEDS ORDERED: ZOFR4TAB3 PO (21:25)
[2017-05-07 21:29] VITALS: BP 128/78
[2017-07-05] MEDS ORDERED: ABIL1TAB12 PO (18:35)
== END 2017-05-07 21:43 | disposition home or self-care (01) ==
LOC: M ED 16:07
DX: R11.2 Nausea with vomiting, unspecified (principal); F90.0 Attention-deficit hyperactivity disorder, predominantly inattentive type; F41.9 Anxiety disorder, unspecified; F32.9 Major depressive disorder, single episode, unspecified; G89.29 Other chronic pain; G90.50 Complex regional pain syndrome I, unspecified; N35.9 Urethral stricture, unspecified; Z96.9 Presence of functional implant, unspecified; F17.200 Nicotine dependence, unspecified, uncomplicated; K40.90 Unilateral inguinal hernia, without obstruction or gangrene, not specified as recurrent; Z79.899 Other long term (current) drug therapy; Z88.0 Allergy status to penicillin; Z88.5 Allergy status to narcotic agent; Z88.8 Allergy status to other drugs, medicaments and biological substances; Z91.013 Allergy to seafood; Z91.018 Allergy to other foods
CPT/HCPCS: 70450; 71020; 74177; 76705; 80048; 80076; 81001; 83605; 83690; 85025; 86308; 87040; 87086; 87880; 93041; 94760; 96374; 96375; 96376; 99285; J1170; J2405; Q9963; Q9967

== ENCOUNTER 2017-07-11 21:41 | Observation (INO) | payer MEDICARE, MEDICAID ==
[~2017-07-11] VITALS: Ht 188 cm; Wt 110.6 kg
[~2017-07-11 21:41] MED LIST changes: +OLANZapine 5 MG TAB PO SCH; +ZOFR4TAB3 PO
[2017-07-11] MEDS ORDERED: HYDROmorphone HCL 1 MG/ML SYRINGE (J1170) IV PRN (22:30)
[2017-07-11 22:43] LABS: BASO % 0.4 % (0.0-1.0); EOS # 0.3 10^3/uL (0.0-0.50); IMMATURE GRANULOCYTE % 0.3 % (0-0); LYMPH # 2.3 10^3/uL (1.5-4.5); LYMPH % 34.4 % (24.0-44.0); MEAN CORPUSCULAR HEMOGLOBIN 34.6 pg (27.0-33.0); MEAN CORPUSCULAR HGB CONC 34.6 g/dl (32.0-36.5); MONO # 0.6 10^3/uL (0.0-0.8); MONO % 8.9 % (0.0-5.0); NEUTROPHILS # 3.5 10^3/uL (1.8-7.7); PLATELET COUNT, AUTOMATED 252 10^3/uL (150-450); RED CELL DISTRIBUTION WIDTH 12.3 % (11.5-14.5); WHITE BLOOD COUNT 6.7 10^3/uL (4.0-10.0)
[2017-07-11 23:14] LABS: ALBUMIN 3.7 GM/DL (3.2-5.2); ALBUMIN/GLOBULIN RATIO 0.93 (1.00-1.93); ALKALINE PHOSPHATASE 163 U/L (45-117); ALT/SGPT 60 U/L (12-78); ANION GAP 3 MEQ/L (8-16); AST/SGOT 30 U/L (7-37); BILIRUBIN,DIRECT 0.1 MG/DL (0.0-0.2); BILIRUBIN,TOTAL 0.5 MG/DL (0.2-1.0); BLOOD UREA NITROGEN 17 MG/DL (7-18); CALCIUM LEVEL 8.8 MG/DL (8.5-10.1); CARBON DIOXIDE LEVEL 30 MEQ/L (21-32); CHLORIDE LEVEL 105 MEQ/L (98-107); GLOMERULAR FILTRATION RATE > 60.0 (>60); GLUCOSE, FASTING 83 MG/DL (70-105); POTASSIUM SERUM 4.1 MEQ/L (3.5-5.1); SODIUM LEVEL 138 MEQ/L (136-145); TOTAL PROTEIN 7.7 GM/DL (6.4-8.2)
[2017-07-11] MEDS ORDERED: FUROSEMIDE 40 MG/4 ML VIAL (J1940) IV ONE (23:30)
--- NOTE | 2017-07-11 23:30 | REPUSA ---
Clinical history: Pain, swelling. Findings: The common femoral, superficial femoral, popliteal, and other deep venous structures compre ss normally and demonstrate normal color Doppler flow. Normal venous waveforms with augmentation are seen. Impression: No evidence of deep vein thrombosis in the femoral popliteal venous system.
[2017-07-12] MEDS ORDERED: HYDROmorphone HCL 1 MG/ML SYRINGE (J1170) IV ONE (00:15)
[2017-07-12] MEDS ORDERED: ALPR1TAB6 PO (02:58)
[2017-07-12] MEDS ORDERED: VENTAER INH (02:58)
[2017-07-12] MEDS ORDERED: HYDR2INJ SC (02:58)
[2017-07-12] MEDS ORDERED: ZYPR15TA PO (02:58)
[2017-07-12] MEDS ORDERED: ACETAMINOPHEN TAB 650MG DOSE (2X325MG) PO PRN (03:30)
[2017-07-12] MEDS ORDERED: ALBUTEROL 90 MCG/ACT 8GM HFA INHALER INH PRN (03:30)
[2017-07-12] MEDS ORDERED: ONDANSETRON 4MG/2ML VIAL (J2405) IV PRN (03:30)
[2017-07-12 04:35] VITALS: BP 136/72
[2017-07-12] MEDS ORDERED: MORPHINE 30 MG TAB **MSIR PO PRN (04:45)
--- NOTE | 2017-07-12 07:25 | ECGEPIP ---
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
--- NOTE | 2017-07-12 07:27 | REP ---
A PA and lateral chest the patient sitting: Comparison 05/07/2017. There are diffuse bilateral interstitial infiltrates as an interval change. There are no pleural effusions. No focal infiltrate. Cardiac size is upper normal. The caden, mediastinum, and bony thorax are unremarkable. Impression: Bilateral interstitial infiltrates. Signed by Clifford Lockwood MD 07/12/2017 07:19 A
[2017-07-12] MEDS ORDERED: PANTOPRAZOLE 40MG TAB (PROTONIX) PO SCH (09:00)
[2017-07-12] MEDS ORDERED: LIDOCAINE 5% OINT 30 GM TOP SCH (09:00)
[2017-07-12] MEDS ORDERED: ALPRAZolam 0.25 MG TAB PO SCH (09:00)
[2017-07-12] MEDS ORDERED: HYDROmorphone 2 MG TAB PO PRN (09:45)
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
[2017-07-12 09:49] LABS: BASO % 0.5 % (0.0-1.0); EOS # 0.3 10^3/uL (0.0-0.50); EOS % 4.2 % (0.0-3.0); IMMATURE GRANULOCYTE % 0.2 % (0-0); LYMPH % 31.4 % (24.0-44.0); MEAN CORPUSCULAR HEMOGLOBIN 34.1 pg (27.0-33.0); MEAN CORPUSCULAR HGB CONC 34.3 g/dl (32.0-36.5); MEAN CORPUSCULAR VOLUME 99.5 fl (80.0-96.0); MONO # 0.7 10^3/uL (0.0-0.8); MONO % 10.7 % (0.0-5.0); NEUTROPHILS # 3.3 10^3/uL (1.8-7.7); PLATELET COUNT, AUTOMATED 259 10^3/uL (150-450); RED CELL DISTRIBUTION WIDTH 12.4 % (11.5-14.5); WHITE BLOOD COUNT 6.2 10^3/uL (4.0-10.0)
[2017-07-12 10:29] LABS: ALBUMIN 3.7 GM/DL (3.2-5.2); ALBUMIN/GLOBULIN RATIO 1.12 (1.00-1.93); ALKALINE PHOSPHATASE 158 U/L (45-117); ALT/SGPT 53 U/L (12-78); ANION GAP 6 MEQ/L (8-16); AST/SGOT 21 U/L (7-37); BILIRUBIN,TOTAL 0.6 MG/DL (0.2-1.0); BLOOD UREA NITROGEN 16 MG/DL (7-18); CALCIUM LEVEL 9.2 MG/DL (8.5-10.1); CARBON DIOXIDE LEVEL 32 MEQ/L (21-32); CHLORIDE LEVEL 103 MEQ/L (98-107); CREATININE FOR GFR 0.94 MG/DL (0.70-1.30); GLOMERULAR FILTRATION RATE > 60.0 (>60); GLUCOSE, FASTING 96 MG/DL (70-105); MAGNESIUM LEVEL 2.3 MG/DL (1.8-2.4); POTASSIUM SERUM 4.3 MEQ/L (3.5-5.1); SODIUM LEVEL 141 MEQ/L (136-145)
[2017-07-12] MEDS ORDERED: LIDO5OIN28 TOP (10:59)
[2017-07-12] MEDS ORDERED: HYDR2TAB2 PO (10:59)
[2017-07-12] MEDS ORDERED: LASI40TA PO (10:59)
[2017-07-12] MEDS ORDERED: FUROSEMIDE 20 MG/2 ML VIAL (J1940) IV ONE (11:00)
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
== END 2017-07-12 13:41 | disposition home health service (06) ==
LOC: M ED 21:41 → M ED INP 21:42 → M MSPAV 07-12 04:34
PROVIDERS: ATTEND Hospitalist
DX: G90.523 Complex regional pain syndrome I of lower limb, bilateral (principal); R60.9 Edema, unspecified; G89.29 Other chronic pain; M54.5 Low back pain; F90.9 Attention-deficit hyperactivity disorder, unspecified type; F31.9 Bipolar disorder, unspecified; F41.9 Anxiety disorder, unspecified; Z88.0 Allergy status to penicillin; Z88.5 Allergy status to narcotic agent; Z88.8 Allergy status to other drugs, medicaments and biological substances; Z91.013 Allergy to seafood; Z91.018 Allergy to other foods
CPT/HCPCS: 36415; 71020; 80048; 80053; 80076; 81001; 83735; 83880; 84484; 85025; 86140; 87040; 93005; 93970; 96374; 96375; 96376; 99284; G0378; J1170; J1940

== ENCOUNTER 2017-11-10 18:07 | Emergency (ER) | payer MEDICARE, MEDICAID ==
[2017-11-10 20:24] LABS: INFLUENZA A AMPLIFICATION NEGATIVE (NEGATIVE); INFLUENZA B AMPLIFICATION NEGATIVE (NEGATIVE); RSV AMPLIFICATION NEGATIVE (NEGATIVE)
[2017-11-10] MEDS: ACETAMINOPHEN 325 MG TAB PO (21:20)
[2017-11-10 22:00] LABS: BASO % 0.2 % (0.0-1.0); EOS % 0.3 % (0.0-3.0); HEMATOCRIT 45.4 % (42.0-52.0); HEMOGLOBIN 15.9 g/dl (14.0-18.0); IMMATURE GRANULOCYTE % 0.3 % (0-3.0); LYMPH # 2.2 10^3/uL (1.5-4.5); LYMPH % 19.3 % (24.0-44.0); MEAN CORPUSCULAR HEMOGLOBIN 33.4 pg (27.0-33.0); MEAN CORPUSCULAR VOLUME 95.4 fl (80.0-96.0); MONO # 0.6 10^3/uL (0.0-0.8); MONO % 5.6 % (0.0-5.0); NEUTROPHILS # 8.4 10^3/uL (1.8-7.7); NEUTROPHILS % 74.3 % (36.0-66.0); PLATELET COUNT, AUTOMATED 250 10^3/uL (150-450); RED BLOOD COUNT 4.76 10^6/uL (4.30-6.10); RED CELL DISTRIBUTION WIDTH 12.8 % (11.5-14.5); WHITE BLOOD COUNT 11.2 10^3/uL (4.0-10.0)
[2017-11-10 22:12] LABS: ANION GAP 6 MEQ/L (8-16); BLOOD UREA NITROGEN 15 MG/DL (7-18); CALCIUM LEVEL 9.2 MG/DL (8.5-10.1); CARBON DIOXIDE LEVEL 26 MEQ/L (21-32); CHLORIDE LEVEL 109 MEQ/L (98-107); CREATININE FOR GFR 1.03 MG/DL (0.70-1.30); GLOMERULAR FILTRATION RATE > 60.0 (>60); GLUCOSE, FASTING 106 MG/DL (70-100); POTASSIUM SERUM 3.9 MEQ/L (3.5-5.1); SODIUM LEVEL 141 MEQ/L (136-145)
[2017-11-10] MEDS: AZITHROMYCIN 250 MG TAB PO (22:30)
== END 2017-11-10 22:31 | disposition home or self-care (01) ==
LOC: M ED 18:07
DX: J32.9 Chronic sinusitis, unspecified (principal); G89.29 Other chronic pain; Z79.899 Other long term (current) drug therapy; Z88.0 Allergy status to penicillin; Z88.8 Allergy status to other drugs, medicaments and biological substances; Z91.013 Allergy to seafood; Z91.018 Allergy to other foods; Z87.891 Personal history of nicotine dependence
CPT/HCPCS: 71046

== ENCOUNTER 2017-11-27 22:10 | Emergency (ER) | payer MEDICARE, MEDICAID ==
[2017-11-27] MEDS: PERCOCET 5MG/325MG TAB PO (23:15)
[2017-11-27] MEDS: OXYCODONE/APAP 5MG/325MG(BULK FOR ED) 1 TABLET PO (23:30)
== END 2017-11-27 23:44 | disposition home or self-care (01) ==
LOC: M ED 22:10
DX: S86.911A Strain of unspecified muscle(s) and tendon(s) at lower leg level, right leg, initial encounter (principal); S93.401A Sprain of unspecified ligament of right ankle, initial encounter; X50.0XXA Overexertion from strenuous movement or load, initial encounter; Y92.830 Public park as the place of occurrence of the external cause; Y93.67 Activity, basketball; G90.50 Complex regional pain syndrome I, unspecified; Z79.899 Other long term (current) drug therapy; Z88.0 Allergy status to penicillin; Z88.8 Allergy status to other drugs, medicaments and biological substances; Z91.013 Allergy to seafood; Z91.018 Allergy to other foods
CPT/HCPCS: 73590

== ENCOUNTER 2017-12-16 04:50 | Emergency (ER) | payer MEDICARE, MEDICAID ==
[2017-12-16] MEDS: HYDROmorphone HCL 1 MG/ML SYRINGE (J1170) IM ×2 (06:32)
[2017-12-16] MEDS: PERCOCET 5MG/325MG TAB PO ×2 (07:52)
== END 2017-12-16 08:42 | disposition home or self-care (01) ==
LOC: M ED 04:50
DX: M51.37 Other intervertebral disc degeneration, lumbosacral region (principal); M62.830 Muscle spasm of back; S29.011A Strain of muscle and tendon of front wall of thorax, initial encounter; S39.002A Unspecified injury of muscle, fascia and tendon of lower back, initial encounter; W10.8XXA Fall (on) (from) other stairs and steps, initial encounter; Y92.59 Other trade areas as the place of occurrence of the external cause; G90.50 Complex regional pain syndrome I, unspecified; F41.9 Anxiety disorder, unspecified; F33.9 Major depressive disorder, recurrent, unspecified; F90.9 Attention-deficit hyperactivity disorder, unspecified type; Z79.899 Other long term (current) drug therapy; Z88.0 Allergy status to penicillin; Z88.8 Allergy status to other drugs, medicaments and biological substances; Z91.013 Allergy to seafood; Z91.018 Allergy to other foods
CPT/HCPCS: J1170

== ENCOUNTER 2017-12-19 04:51 | Emergency (ER) | payer MEDICARE, MEDICAID ==
[2017-12-19] MEDS: KETOROLAC 30 MG/ML VIAL (J1885) IV (05:44)
[2017-12-19 06:03] LABS: BASO % 0.4 % (0.0-1.0); EOS # 0.2 10^3/uL (0.0-0.50); EOS % 2.5 % (0.0-3.0); HEMATOCRIT 44.2 % (42.0-52.0); HEMOGLOBIN 15.6 g/dl (13.5-17.5); IMMATURE GRANULOCYTE % 0.3 % (0-3.0); LYMPH # 2.1 10^3/uL (1.5-4.5); LYMPH % 28.8 % (24.0-44.0); MEAN CORPUSCULAR HEMOGLOBIN 34.5 pg (27.0-33.0); MEAN CORPUSCULAR HGB CONC 35.3 g/dl (32.0-36.5); MEAN CORPUSCULAR VOLUME 97.8 fl (80.0-96.0); MONO # 0.6 10^3/uL (0.0-0.8); MONO % 8.7 % (0.0-5.0); NEUTROPHILS # 4.3 10^3/uL (1.8-7.7); NEUTROPHILS % 59.3 % (36.0-66.0); PLATELET COUNT, AUTOMATED 213 10^3/uL (150-450); RED BLOOD COUNT 4.52 10^6/uL (4.30-6.10); RED CELL DISTRIBUTION WIDTH 13.7 % (11.5-14.5); WHITE BLOOD COUNT 7.2 10^3/uL (4.0-10.0)
[2017-12-19 06:06] LABS: INR 1.05; PARTIAL THROMBOPLASTIN TIME 30.2 SECONDS (26.8-37.9); PROTHROMBIN TIME 13.8 SECONDS (12.4-14.5)
[2017-12-19 06:19] LABS: ANION GAP 5 MEQ/L (8-16); BLOOD UREA NITROGEN 17 MG/DL (7-18); CALCIUM LEVEL 8.8 MG/DL (8.5-10.1); CARBON DIOXIDE LEVEL 25 MEQ/L (21-32); CHLORIDE LEVEL 110 MEQ/L (98-107); CPK CREATINE PHOSPHOKINASE 151 U/L (39-308); CREATININE FOR GFR 0.88 MG/DL (0.70-1.30); GLOMERULAR FILTRATION RATE > 60.0 (>60); GLUCOSE, FASTING 90 MG/DL (70-100); SODIUM LEVEL 140 MEQ/L (136-145); TROPONIN I < 0.02 NG/ML (< 0.10)
[2017-12-19 06:20] LABS: MB/CK RELATIVE INDEX 0.66 (< OR =4)
[2017-12-19] MEDS ORDERED: ISOVUE-370 76% 100ML VIAL (Q9967) As Ordered (06:30)
== END 2017-12-19 08:15 | disposition home or self-care (01) ==
LOC: M ED 04:51
DX: R07.89 Other chest pain (principal); R94.31 Abnormal electrocardiogram [ECG] [EKG]; G89.4 Chronic pain syndrome; Z87.891 Personal history of nicotine dependence; Z88.5 Allergy status to narcotic agent; Z91.013 Allergy to seafood; Z91.018 Allergy to other foods; Z88.0 Allergy status to penicillin; Z79.899 Other long term (current) drug therapy
CPT/HCPCS: Q9967

== ENCOUNTER 2018-02-23 08:52 | Emergency (ER) | payer MEDICARE, MEDICAID ==
[2018-02-23 09:34] LABS: BASO % 0.6 % (0.0-1.0); EOS # 0.2 10^3/uL (0.0-0.50); EOS % 2.1 % (0.0-3.0); HEMATOCRIT 46.4 % (42.0-52.0); HEMOGLOBIN 16.5 g/dl (13.5-17.5); IMMATURE GRANULOCYTE % 0.3 % (0-3.0); LYMPH # 1.9 10^3/uL (1.5-4.5); LYMPH % 25.8 % (24.0-44.0); MEAN CORPUSCULAR HEMOGLOBIN 34.6 pg (27.0-33.0); MEAN CORPUSCULAR HGB CONC 35.6 g/dl (32.0-36.5); MEAN CORPUSCULAR VOLUME 97.3 fl (80.0-96.0); MONO # 0.6 10^3/uL (0.0-0.8); MONO % 8.1 % (0.0-5.0); NEUTROPHILS # 4.5 10^3/uL (1.8-7.7); NEUTROPHILS % 63.1 % (36.0-66.0); PLATELET COUNT, AUTOMATED 207 10^3/uL (150-450); RED BLOOD COUNT 4.77 10^6/uL (4.30-6.10); RED CELL DISTRIBUTION WIDTH 11.9 % (11.5-14.5); WHITE BLOOD COUNT 7.2 10^3/uL (4.0-10.0)
[2018-02-23 10:05] LABS: ANION GAP 6 MEQ/L (8-16); BLOOD UREA NITROGEN 12 MG/DL (7-18); CALCIUM LEVEL 8.7 MG/DL (8.5-10.1); CARBON DIOXIDE LEVEL 27 MEQ/L (21-32); CHLORIDE LEVEL 109 MEQ/L (98-107); CK-MB VALUE MASS 1.7 NG/ML (<3.6); CPK CREATINE PHOSPHOKINASE 302 U/L (39-308); CREATININE FOR GFR 1.05 MG/DL (0.70-1.30); GLOMERULAR FILTRATION RATE > 60.0 (>60); GLUCOSE, FASTING 98 MG/DL (70-100); MB/CK RELATIVE INDEX 0.56 (< OR =4); SODIUM LEVEL 142 MEQ/L (136-145); TROPONIN I < 0.02 NG/ML (< 0.10)
[2018-02-23] MEDS ORDERED: ISOVUE-370 76% 100ML VIAL (Q9967) As Ordered (11:56)
[2018-02-23] MEDS: NS 1,000 ML IV (12:09)
[2018-02-23] MEDS: ASPIRIN 81 MG CHEW TABLET PO (12:09)
[2018-02-23 12:10] LABS: ALBUMIN/GLOBULIN RATIO 1.14 (1.00-1.93); ALKALINE PHOSPHATASE 126 U/L (45-117); ALT/SGPT 35 U/L (12-78); AST/SGOT 19 U/L (7-37); BILIRUBIN,DIRECT 0.2 MG/DL (0.0-0.2); BILIRUBIN,TOTAL 0.8 MG/DL (0.2-1.0); LIPASE 93 U/L (73-393); TOTAL PROTEIN 7.5 GM/DL (6.4-8.2)
[2018-02-23] MEDS: HYDROmorphone HCL 1 MG/ML SYRINGE (J1170) IV (12:10)
[2018-02-23] MEDS: CIPROFLOXACIN 500 MG TAB PO (16:18)
[2018-02-23] MEDS: metroNIDAZOLE (FLAGYL) 500 MG TAB PO (16:18)
== END 2018-02-23 16:39 | disposition home or self-care (01) ==
LOC: M ED 08:52
DX: K52.9 Noninfective gastroenteritis and colitis, unspecified (principal); R07.9 Chest pain, unspecified; I45.10 Unspecified right bundle-branch block; R59.9 Enlarged lymph nodes, unspecified; G90.529 Complex regional pain syndrome I of unspecified lower limb; Z87.891 Personal history of nicotine dependence; Z82.49 Family history of ischemic heart disease and other diseases of the circulatory system; Z96.9 Presence of functional implant, unspecified; Z79.899 Other long term (current) drug therapy; Z88.0 Allergy status to penicillin; Z88.8 Allergy status to other drugs, medicaments and biological substances; Z88.5 Allergy status to narcotic agent; Z91.018 Allergy to other foods
CPT/HCPCS: J1170

== ENCOUNTER 2018-07-21 09:21 | Emergency (ER) | payer MEDICARE, MEDICAID ==
[2018-07-21] MEDS: IPRATROPIUM 0.5MG/ALBUTEROL 2.5MG INH SOL UD 3ML (DUONEB)(J7620) NEB (09:52)
== END 2018-07-21 10:19 | disposition home or self-care (01) ==
LOC: M ED 09:21
DX: J20.8 Acute bronchitis due to other specified organisms (principal); M54.9 Dorsalgia, unspecified; G90.50 Complex regional pain syndrome I, unspecified; F31.9 Bipolar disorder, unspecified; F90.9 Attention-deficit hyperactivity disorder, unspecified type; Z87.891 Personal history of nicotine dependence; Z88.0 Allergy status to penicillin; Z91.018 Allergy to other foods; Z91.013 Allergy to seafood; Z88.4 Allergy status to anesthetic agent; Z79.899 Other long term (current) drug therapy
CPT/HCPCS: 71046

== ENCOUNTER 2018-11-24 17:42 | Inpatient (IN) | payer MEDICARE, MEDICAID ==
[~2018-11-24] VITALS: Ht 188 cm; Wt 106.9 kg
[~2018-11-24 17:42] MED LIST changes: +ALPR1TAB6 PO; +AMAN100T; +CIPR-249 PO; +CLAR5TAB7 PO; +FLAG500T PO; +HYDR2INJ SC; +HYDR2TAB2 PO; +LASI40TA9 PO; +LIDO5OIN28 TOP; +MUCI600T37 PO; +NAPR-50 PO; +OLAN15TA PO; -OLANZapine 5 MG TAB PO SCH; +PERC5TAB12 PO; +ROBA500T PO; +TIZA4CAP PO; -TIZA4CAP3 PO; +VENTAER INH; +ZITHTAB PO; -ZOFR20TA PO; +ZOFR4TAB14 PO; +ZOFR4TAB16 PO; -ZOFR4TAB3 PO; +ZYPR15TA PO
[2018-11-24] MEDS ORDERED: OXYC-517 PO (17:53)
[2018-11-24] MEDS ORDERED: ADDE20CA3 PO (17:53)
[2018-11-24 18:39] LABS: HEMATOCRIT 50.7 % (42.0-52.0); HEMOGLOBIN 17.6 g/dl (13.5-17.5); MEAN CORPUSCULAR HEMOGLOBIN 34.4 pg (27.0-33.0); MEAN CORPUSCULAR HGB CONC 34.7 g/dl (32.0-36.5); PLATELET COUNT, AUTOMATED 169 10^3/uL (150-450); RED BLOOD COUNT 5.12 10^6/uL (4.30-6.10); WHITE BLOOD COUNT 7.9 10^3/uL (4.0-10.0)
[2018-11-24 19:06] LABS: AMPHETAMINES LEVEL URINE NEGATIVE (NEGATIVE); BARBITURATES URINE NEGATIVE (NEGATIVE); BENZODIAZEPINES URINE NEGATIVE (NEGATIVE); CANNABINOIDS URINE NEGATIVE (NEGATIVE); COCAINE METABOLITE URINE NEGATIVE (NEGATIVE); METHADONE URINE NEGATIVE (NEGATIVE); OPIATES URINE NEGATIVE (NEGATIVE); PHENCYCLIDINE URINE NEGATIVE (NEGATIVE)
[2018-11-24 19:18] LABS: ACETAMINOPHEN LEVEL < 2.0 UG/ML (10.0-30.0); ALBUMIN 4.5 GM/DL (3.2-5.2); ALT/SGPT 41 U/L (12-78); BILIRUBIN,DIRECT 0.1 MG/DL (0.0-0.2); BILIRUBIN,TOTAL 0.7 MG/DL (0.2-1.0); BLOOD UREA NITROGEN 18 MG/DL (7-18); CALCIUM LEVEL 8.9 MG/DL (8.5-10.1); CARBON DIOXIDE LEVEL 27 MEQ/L (21-32); CHLORIDE LEVEL 104 MEQ/L (98-107); CREATININE FOR GFR 1.09 MG/DL (0.70-1.30); ETHYL ALCOHOL (ETHANOL) < 0.003 % (0.000-0.010); GLOMERULAR FILTRATION RATE > 60.0 (>60); GLUCOSE, FASTING 86 MG/DL (70-100); POTASSIUM SERUM 4.1 MEQ/L (3.5-5.1); SALICYLATE LEVEL 2.1 MG/DL (5.0-30.0); SODIUM LEVEL 138 MEQ/L (136-145); TOTAL PROTEIN 8.3 GM/DL (6.4-8.2)
[2018-11-24] MEDS ORDERED: AMBI10TA PO (20:12)
[2018-11-24] MEDS ORDERED: MAALOX 30 ML SUSP *UDC PO PRN (22:00)
[2018-11-24] MEDS ORDERED: NICOTINE 21MG/24HR 1 EA TRANSDERMAL TD PRN (22:00)
[2018-11-24] MEDS ORDERED: MOM 30ML SUSPENSION UDC PO PRN (22:00)
[2018-11-25 01:17] VITALS: BP 131/91
[2018-11-25] MEDS ORDERED: ALBUTEROL 90 MCG/ACT 8GM HFA INHALER INH PRN (02:00)
[2018-11-25] MEDS ORDERED: zolPIDEM TARTRATE 5 MG TAB PO SCH (02:00)
[2018-11-25] MEDS ORDERED: zolPIDEM TARTRATE 10MG TAB PO SCH (02:00)
[2018-11-25] MEDS: PREGABALIN 100 MG CAP (LYRICA) PO SCH ×4 (02:02→20:22)
[2018-11-25] MEDS: oxyCODONE 5MG TAB PO PRN ×2 (02:03→20:23)
[2018-11-25 06:49] VITALS: BP 141/90
[2018-11-25] MEDS: AMPHETAMINE/DEXTROAMPHETAMINE 5 MG *ER* CAPSULE (ADDERALL XR) PO SCH ×2 (09:02→13:25)
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
[2018-11-25 18:00] VITALS: BP 130/83
[2018-11-25] MEDS: LURASIDONE HCL 40 MG TAB (LATUDA) PO SCH (18:03)
[2018-11-25] MEDS: ACETAMINOPHEN TAB 650MG DOSE (2X325MG) PO PRN (20:22)
[2018-11-25] MEDS: traZODone 50 MG TAB PO PRN (20:22)
--- NOTE | 2018-11-25 21:39 | ECGEPIP ---
Stationary ECG Study [facility] Test Date: 2018-11-25 Pat Name: JUAQUIN MULLER Department: Room: [place] [address] Gender: M Staff Development Coordinator: SHAYY : 1980 Requested By: Sofy Chu Order Number: [id number] Reading MD: Stew West Measurements Intervals [place] Rate: 83 P: 52 SD: 165 QRS: 18 QRSD: 133 T: 74 QT: 350 QTc: 412 Interpretive Statements SINUS RHYTHM RIGHT BUNDLE BRANCH BLOCK MINIMAL CHANGE SINCE 02/23/18 Electronically Signed On 11-25-2018 21:38:41 EDT by Stew West
[2018-11-26] MEDS: OLANZapine ORAL DISINTEGRATING TAB 5MG PO PRN ×2 (00:26→20:13)
[2018-11-26] MEDS: ACETAMINOPHEN TAB 650MG DOSE (2X325MG) PO PRN ×2 (06:30→20:12)
[2018-11-26] MEDS: oxyCODONE 5MG TAB PO PRN ×2 (06:31→20:13)
[2018-11-26 06:41] VITALS: BP 128/72
[2018-11-26] MEDS: AMPHETAMINE/DEXTROAMPHETAMINE 5 MG *ER* CAPSULE (ADDERALL XR) PO SCH ×2 (08:27→14:34)
[2018-11-26] MEDS: LURASIDONE HCL 40 MG TAB (LATUDA) PO SCH ×2 (08:27→17:11)
[2018-11-26] MEDS: PREGABALIN 100 MG CAP (LYRICA) PO SCH ×3 (08:27→20:13)
--- NOTE | 2018-11-26 08:56 | MHIPNPDOC ---
[facility] Progress Note Progress Note DATE OF SERVICE: 11/26/18 HISTORY: Patient is a 38 -year-old , male, with a history of bipolar depression and SA who presented to the ED after encouraged him to due to in tentional OD on Ambien nights of 11/20/18 and again 11/23/18 (took 14 10mg). Pt in the ED upset he's still alive and frustrated OD didn't kill him. Pt endorsing worsening depression over the past 3 months due to unknown cause. Per ED he is co-parenting his 7y/o son with his ex- and has residential custody of him and his ex- is currently dating someone but denies those are causing his depression. He denied HI, hallucinations, delusions in the ED. He continued to endorse SI with intent. VITAL SIGNS: See below. NEW TEST RESULTS: See below. CURRENT MEDICATIONS: See below. MENTAL STATUS EXAMINATION: General Appearance: well groomed, appears stated age, hospital scrubs/clothing Build: average Demeanor: less fidgety Eye Contact: average Activity: anxious Behavior: cooperative, restless Speech: clear, spontaneous, reg/rate,rhythm,volume Mood: less depressed, anxious Mood better Affect: less constricted, congruent, anxious Thought Process: logical/linear, depressed, intact Thought Content (Delusions): none reported Thought Content (Other): none reported, appropriate Thought Content (Aggressive): none reported Perception (Hallucinations): none reported Perception (Other): none reported Cognition (Impairment of): none reported Cognition(Intelligence Est.): average Oriented: Awake, Alert, Oriented times three Insight: poor Judgment: Poor Psychosis: Denies DIAGNOSES: Bipolar Depression ASSESSMENT:Pt seen and states his mood is better today as he's finding latuda beneficial and tolerating it well, denies side effects. Pt attempting to be discharged home today but discussed with him my concern regarding that especially b/c he OD twice prior to admission on ambien and had suicidal intent when seen in the ED on admission. He stated he understood and was agreeable to staying to continue with his mood improvement and monitor response to new medication. Denies SI today. Endorses improved anxiety and is sleeping well. He does appear to be anxious still though. Is attending groups and finding the helpful. Denies SI/HI, hallucinations, delusions. Feels safe here. MANAGEMENT PLAN: continue plan Medications: latuda 40mg bid for bipolar depression TIME SPENT: 30 minutes. Vital Signs Vital Signs Date Time Temp Pulse Resp B/P (MAP) Pulse Ox O2 Delivery O2 Flow Rate FiO2 11/26/18 07:15 18 11/26/18 06:41 96.4 91 128/72 (90) 11/25/18 00:28 99 11/24/18 17:45 Room Air Current Medications Current Medications Acetaminophen (Tylenol Tab) 650 mg Q6HP PRN PO HEADACHE or DISCOMFORT Last administered on 11/26/18 06:30; Start 11/24/18 at 22:00 Al Hydrox/Mg Hydrox/Simethicone (Mylanta) 30 ml Q4HP PRN PO HEARTBURN/INDIGESTION; Start 11/24/18 at 22:00 Albuterol Sulfate (Proventil, Ventolin Hfa) 2 puff Q6HP PRN INH SHORTNESS OF BREATH; Start 11/25/18 at 02:00 Amphetamine/ Dextroamphetamine (Adderall Xr) 20 mg BID@0800,1400 PO Last administered on 11/26/18 08:27; Start 11/25/18 at 08:00 Home Med (Med Rec Complete!) ASDIRECTED XX ; Start 11/24/18 at 20:15; Stop 11/24/18 at 20:15; Status DC Lurasidone HCl (Latuda) 40 mg DAILY@08 PO Last administered on 11/26/18 08:27; Start 11/26/18 at 08:00 Lurasidone HCl (Latuda) 40 mg DAILY@18 PO Last administered on 11/25/18at 18:03; Start 11/25/18 at 18:00 Magnesium Hydroxide (Milk Of Magnesia) 30 ml DAILYPRN PRN PO CONSTIPATION; Start 11/24/18 at 22:00 Nicotine (Nicoderm Cq 21mg) 1 patch DAILY PRN TD Craving; Start 11/24/18 at 22:00 Olanzapine (ZyPREXA ZYDIS) 5 mg Q4HP PRN PO AGITATION Last administered on 11/26/18 00:26; Start 11/24/18 at 22:00 Oxycodone HCl (Roxicodone, Oxyir) 5 mg BIDP PRN PO pain Last administered on 3/28/19at 06:31; Start 11/25/18 at 02:00 Pregabalin (Lyrica) 200 mg TID PO Last administered on 11/26/18at 08:27; Start 11/25/18 at 02:00 Trazodone HCl (Desyrel) 50 mg QHSP PRN PO INSOMNIA Last administered on 11/25/18at 20:22; Start 11/24/18 at 22:00 Zolpidem Tartrate (Ambien) 10 mg QHS PO ; Start 11/25/18 at 02:00; Stop 11/25/18 at 02:00; Status DC Zolpidem Tartrate (Ambien) 10 mg QHS PO Last administered on 11/25/18at 02:02; Start 11/25/18 at 02:00; Stop 11/25/18 at 12:16; Status DC Allergies Coded Allergies: fentanyl (Verified Allergy, Severe, arrest, 11/25/18) Penicillins (Verified Allergy, Intermediate, HIVES, 11/25/18) FISH (Verified Allergy, Unknown, 11/25/18) PEPPERS (Verified Allergy, Unknown, 11/25/18) onion (Verified Allergy, Unknown, 11/25/18) gabapentin (Verified Adverse Reaction, Intermediate, LEGS SWELL, 11/25/18) MINNA COSTA DO Nov 26, 2018 8:56 am
[2018-11-26 18:00] VITALS: BP 139/87
[2018-11-26] MEDS: traZODone 50 MG TAB PO PRN (20:43)
[2018-11-27] MEDS: OLANZapine ORAL DISINTEGRATING TAB 5MG PO PRN ×2 (00:24→21:41)
[2018-11-27] MEDS: ACETAMINOPHEN TAB 650MG DOSE (2X325MG) PO PRN (06:10)
[2018-11-27 06:53] VITALS: BP 129/60
[2018-11-27] MEDS: oxyCODONE 5MG TAB PO PRN ×2 (06:59→20:55)
[2018-11-27] MEDS: PREGABALIN 100 MG CAP (LYRICA) PO SCH ×3 (08:51→20:55)
[2018-11-27] MEDS: AMPHETAMINE/DEXTROAMPHETAMINE 5 MG *ER* CAPSULE (ADDERALL XR) PO SCH ×2 (08:51→13:53)
[2018-11-27] MEDS: LURASIDONE HCL 40 MG TAB (LATUDA) PO SCH ×2 (08:51→18:46)
--- NOTE | 2018-11-27 10:00 | MHIPNPDOC ---
[facility] Progress Note Progress Note DATE OF SERVICE: 11/27/18 HISTORY: Patient is a 38 -year-old , male, with a history of bipolar depression and SA who presented to the ED after encouraged him to due to in tentional OD on Ambien nights of 11/20/18 and again 11/23/18 (took 14 10mg). Pt in the ED upset he's still alive and frustrated OD didn't kill him. Pt endorsing worsening depression over the past 3 months due to unknown cause. Per ED he is co-parenting his 7y/o son with his ex- and has residential custody of him and his ex- is currently dating someone but denies those are causing his depression. He denied HI, hallucinations, delusions in the ED. He continued to endorse SI with intent. VITAL SIGNS: See below. NEW TEST RESULTS: See below. CURRENT MEDICATIONS: See below. MENTAL STATUS EXAMINATION: General Appearance: well groomed, appears stated age, own clothing Build: average Demeanor: less fidgety Eye Contact: average Activity: anxious Behavior: cooperative, less restless Speech: clear, spontaneous, reg/rate,rhythm,volume Mood: less depressed,less anxious Mood better Affect: less constricted, congruent, less anxious Thought Process: logical/linear, depressed, intact Thought Content (Delusions): none reported, attempting to manipulate staff for d/c Thought Content (Other): none reported, appropriate Thought Content (Aggressive): none reported Perception (Hallucinations): none reported Perception (Other): none reported Cognition (Impairment of): none reported Cognition(Intelligence Est.): average Oriented: Awake, Alert, Oriented times three Insight: poor Judgment: Poor Psychosis: Denies DIAGNOSES: Bipolar Depression ASSESSMENT:Pt seen and states his mood is ok today as he's finding latuda beneficial and tolerating it well, denies side effects. Pt attempting to be discharged home today and per staff is pressuring them and attempting to manipulate for d/c. Discussed with him my concern regarding that especially b/c he OD twice prior to admission on amb and had suicidal intent when seen in the ED on admission again. He stated he understood and was agreeable to staying to continue with his mood improvement and monitor response to new medication. Denies SI today. Talked about his ex- and how she was telling things about her new relationship, crossing boundaries, and causing him emotional distress. States he plans to set up appropriate boundaries with her and make suer he set t aking care of his needs as a priority. Endorses improved anxiety. Endorses insomnia last night and agreeable to increasing trazodone for sleep. He appears to be anxious still though. Is attending groups and finding the helpful. Denies SI/HI, hallucinations, delusions. Feels safe here. MANAGEMENT PLAN: continue plan. increase trazodone Medications: latuda 40mg bid for bipolar depression trazodone 100mg qhs prn insomnia TIME SPENT: 30 minutes. Vital Signs Vital Signs Date Time Temp Pulse Resp B/P (MAP) Pulse Ox O2 Delivery O2 Flow Rate FiO2 11/27/18 07:29 18 11/27/18 06:53 97.1 92 129/60 (83) 11/25/18 00:28 99 11/24/18 17:45 Room Air Current Medications Current Medications Acetaminophen (Tylenol Tab) 650 mg Q6HP PRN PO HEADACHE or DISCOMFORT Last administered on 11/27/18at 06:10; Start 11/24/18 at 22:00 Al Hydrox/Mg Hydrox/Simethicone (Mylanta) 30 ml Q4HP PRN PO HEARTBURN/INDIGEST ION; Start 11/24/18 at 22:00 Albuterol Sulfate (Proventil, Ventolin Hfa) 2 puff Q6HP PRN INH SHORTNESS OF BREATH; Start 11/25/18 at 02:00 Amphetamine/ Dextroamphetamine (Adderall Xr) 20 mg BID@0800,1400 PO Last administered on 11/27/18at 08:51; Start 11/25/18 at 08:00 Home Med (Med Rec Complete!) ASDIRECTED XX ; Start 11/24/18 at 20:15; Stop 11/24/18 at 20:15; Status DC Lurasidone HCl (Latuda) 40 mg DAILY@08 PO Last administered on 11/27/18at 08:51; Start 11/26/18 at 08:00 Lurasidone HCl (Latuda) 40 mg DAILY@18 PO Last administered on 11/26/18at 17:11; Start 11/25/18 at 18:00 Magnesium Hydroxide (Milk Of Magnesia) 30 ml DAILYPRN PRN PO CONSTIPATION; Start 11/24/18 at 22:00 Nicotine (Nicoderm Cq 21mg) 1 patch DAILY PRN TD Craving; Start 11/24/18 at 22:00 Olanzapine (ZyPREXA ZYDIS) 5 mg Q4HP PRN PO AGITATION Last administered on 11/27/18at 00:24; Start 11/24/18 at 22:00 Oxycodone HCl (Roxicodone, Oxyir) 5 mg BIDP PRN PO pain Last administered on 11/27/18at 06:59; Start 11/25/18 at 02:00 Pregabalin (Lyrica) 200 mg TID PO Last administered on 11/27/18at 08:51; Start 11/25/18 at 02:00 Trazodone HCl (Desyrel) 50 mg QHSP PRN PO INSOMNIA Last administered on 11/26/18at 20:43; Start 11/24/18 at 22:00 Zolpidem Tartrate (Ambien) 10 mg QHS PO ; Start 11/25/18 at 02:00; Stop 11/25/18 at 02:00; Status DC Zolpidem Tartrate (Ambien) 10 mg QHS PO Last administered on 11/25/18at 02:02; Start 11/25/18 at 02:00; Stop 11/25/18 at 12:16; Status DC Allergies Coded Allergies: fentanyl (Verified Allergy, Severe, arrest, 11/25/18) Penicillins (Verified Allergy, Intermediate, HIVES, 11/25/18) FISH (Verified Allergy, Unknown, 11/25/18) PEPPERS (Verified Allergy, Unknown, 11/25/18) onion (Verified Allergy, Unknown, 11/25/18) gabapentin (Verified Adverse Reaction, Intermediate, LEGS SWELL, 11/25/18) MINNA COSTA DO Nov 27, 2018 9:35 am
[2018-11-27 10:08] VITALS: BP 129/60
[2018-11-27 18:00] VITALS: BP 133/89
[2018-11-27] MEDS: traZODone 100 MG TAB PO PRN (21:41)
[2018-11-28 06:44] VITALS: BP 124/67
[2018-11-28] MEDS: AMPHETAMINE/DEXTROAMPHETAMINE 5 MG *ER* CAPSULE (ADDERALL XR) PO SCH ×2 (08:27→13:22)
[2018-11-28] MEDS: LURASIDONE HCL 40 MG TAB (LATUDA) PO SCH ×2 (08:27→17:27)
[2018-11-28] MEDS: PREGABALIN 100 MG CAP (LYRICA) PO SCH ×3 (08:27→20:07)
[2018-11-28] MEDS: oxyCODONE 5MG TAB PO PRN ×2 (09:21→20:59)
--- NOTE | 2018-11-28 12:40 | MHIPNPDOC ---
[facility] Progress Note Progress Note DATE OF SERVICE: 11/28/18 HISTORY: Patient reports his mood is "good" today. Denies SI/HI/AVH/renee. Says latuda helping him and that he has had some swelling bilaterally in ankles for last couple days since starting the medication. Says he wants to continue the medication and that he is not bothered by the swelling, nor is it itchy. Ordered EKG, echo, troponins, lipid panel and hba1c. Labs pending agreeable with plan. Given Benadryl. VITAL SIGNS: See below. NEW TEST RESULTS: See below. CURRENT MEDICATIONS: See below. MENTAL STATUS EXAMINATION: General Appearance: well groomed, appears stated age, own clothing Build: average Demeanor: less fidgety Eye Contact: average Activity: anxious Behavior: cooperative, less restless Speech: clear, spontaneous, reg/rate,rhythm,volume Mood: "good" Affect: euthymic Thought Process: logical/linear, depressed, intact Thought Content (Delusions): none reported, attempting to manipulate staff for d/c Thought Content (Other): none reported, appropriate Thought Content (Aggressive): none reported Perception (Hallucinations): none reported Perception (Other): none reported Cognition (Impairment of): none reported Cognition(Intelligence Est.): average Oriented: Awake, Alert, Oriented times three Insight: poor Judgment: Poor Psychosis: Denies DIAGNOSES: Bipolar Depression ASSESSMENT:Patient is euthymic, may be minimizing symptoms to leave. Agrees to medications and workup of ankle swelling. Denies SI/HI, hallucinations, delusions. Feels "stable" and safe. MANAGEMENT PLAN: continue plan. Medications: Continue latuda 40mg bid for bipolar depression Continue trazodone 100mg qhs prn insomnia TIME SPENT: 15 minutes. Vital Signs Vital Signs Date Time Temp Pulse Resp B/P (MAP) Pulse Ox O2 Delivery O2 Flow Rate FiO2 11/28/18 10:00 72 16 11/28/18 08:35 Room Air 11/28/18 06:44 97.8 124/67 (86) 11/27/18 10:08 99 Current Medications Current Medications Acetaminophen (Tylenol Tab) 650 mg Q6HP PRN PO HEADACHE or DISCOMFORT Last administered on 11/27/18at 06:10; Start 11/24/18 at 22:00 Al Hydrox/Mg Hydrox/Simethicone (Mylanta) 30 ml Q4HP PRN PO HEARTBURN/INDIGESTION; Start 11/24/18 at 22:00 Albuterol Sulfate (Proventil, Ventolin Hfa) 2 puff Q6HP PRN INH SHORTNESS OF BREATH; Start 11/25/18 at 02:00 Amphetamine/ Dextroamphetamine (Adderall Xr) 20 mg BID@0800,1400 PO Last administered on 11/28/18 08:27; Start 11/25/18 at 08:00 Home Med (Med Rec Complete!) ASDIRECTED XX ; Start 11/24/18 at 20:15; Stop 11/24/18 at 20:15; Status DC Lurasidone HCl (Latuda) 40 mg DAILY@08 PO Last administered on 11/28/18 08:27; Start 11/26/18 at 08:00 Lurasidone HCl (Latuda) 40 mg DAILY@18 PO Last administered on 11/27/18 18:46; Start 11/25/18 at 18:00 Magnesium Hydroxide (Milk Of Magnesia) 30 ml DAILYPRN PRN PO CONSTIPATION Last administered on 11/27/18 15:52; Start 11/24/18 at 22:00 Nicotine (Nicoderm Cq 21mg) 1 patch DAILY PRN TD Craving; Start 11/24/18 at 22:00 Olanzapine (ZyPREXA ZYDIS) 5 mg Q4HP PRN PO AGITATION Last administered on 11/27/18 21:41; Start 11/24/18 at 22:00 Oxycodone HCl (Roxicodone, Oxyir) 5 mg BIDP PRN PO pain Last administered on 11/28/18 09:21; Start 11/25/18 at 02:00 Pregabalin (Lyrica) 200 mg TID PO Last administered on 11/28/18 08:27; Start 11/25/18 at 02:00 Trazodone HCl (Desyrel) 50 mg QHSP PRN PO INSOMNIA Last administered on 9at 20:43; Start 11/24/18 at 22:00; Stop 11/27/18 at 10:00; Status DC Trazodone HCl (Desyrel) 100 mg QHSP PRN PO INSOMNIA Last administered on 3/29/19at 21:41; Start 11/27/18 at 10:00 Zolpidem Tartrate (Ambien) 10 mg QHS PO ; Start 11/25/18 at 02:00; Stop 11/25/18 at 02:00; Status DC Zolpidem Tartrate (Ambien) 10 mg QHS PO Last administered on 11/25/18at 02:02; Start 11/25/18 at 02:00; Stop 11/25/18 at 12:16; Status DC Allergies Coded Allergies: fentanyl (Verified Allergy, Severe, arrest, 11/25/18) Penicillins (Verified Allergy, Intermediate, HIVES, 11/25/18) FISH (Verified Allergy, Unknown, 11/25/18) PEPPERS (Verified Allergy, Unknown, 11/25/18) onion (Verified Allergy, Unknown, 11/25/18) gabapentin (Verified Adverse Reaction, Intermediate, LEGS SWELL, 11/25/18) PASCALE NETTLES PGY-1 Nov 28, 2018 12:40
[2018-11-28] MEDS ORDERED: diphenhydrAMINE 50 MG CAP PO SCH (13:00)
[2018-11-28] MEDS: diphenhydrAMINE 50 MG CAP PO SCH ×3 (13:00→21:00)
[2018-11-28 13:33] LABS: CPK CREATINE PHOSPHOKINASE 145 U/L (39-308); MB/CK RELATIVE INDEX 1.03 (< OR =4); TROPONIN I < 0.02 NG/ML (< 0.10)
[2018-11-28] MEDS: ACETAMINOPHEN TAB 650MG DOSE (2X325MG) PO PRN (15:49)
[2018-11-28 18:39] VITALS: BP 133/89
[2018-11-28] MEDS: traZODone 100 MG TAB PO PRN (20:57)
[2018-11-28] MEDS: OLANZapine ORAL DISINTEGRATING TAB 5MG PO PRN (20:57)
[2018-11-29 06:32] VITALS: BP 148/80
[2018-11-29 07:28] LABS: HEMOGLOBIN A1c 4.8 %
[2018-11-29 07:45] LABS: CHOLESTEROL RISK RATIO 3.418 (<5)
[2018-11-29] MEDS: AMPHETAMINE/DEXTROAMPHETAMINE 5 MG *ER* CAPSULE (ADDERALL XR) PO SCH ×2 (08:26→14:24)
[2018-11-29] MEDS: PREGABALIN 100 MG CAP (LYRICA) PO SCH ×3 (08:26→21:32)
[2018-11-29] MEDS: diphenhydrAMINE 50 MG CAP PO SCH ×3 (08:26→21:33)
[2018-11-29] MEDS: LURASIDONE HCL 40 MG TAB (LATUDA) PO SCH ×2 (08:26→17:10)
[2018-11-29] MEDS: OLANZapine ORAL DISINTEGRATING TAB 5MG PO PRN ×2 (09:14→21:32)
--- NOTE | 2018-11-29 09:51 | MHIPNPDOC ---
[facility] Progress Note Progress Note DATE OF SERVICE: 11/29/18 HISTORY: Patient reports his mood he continues to feel "good" today. Denies SI/HI/AVH/renee. He says his child has not been in school all week and that he wants to be discharged tomorrow, informed him we are covering over the weekend. Says the lurasidone has been significantly helping his mood/agitation and psychotic symptoms. Continues to deny AVH/paranoia/delusions/renee/SI/HI. Legs bilaterally appear increasingly swollen above ankles bilaterally, says its uncomfortable. This is despite receiving diphenhydramine. VITAL SIGNS: See below. NEW TEST RESULTS: See below. CURRENT MEDICATIONS: See below. MENTAL STATUS EXAMINATION: General Appearance: well groomed, appears stated age, own clothing Build: average Demeanor: less fidgety Eye Contact: average Activity: anxious Behavior: cooperative, less restless Speech: clear, spontaneous, reg/rate,rhythm,volume Mood: "good" Affect: euthymic Thought Process: logical/linear, depressed, intact Thought Content (Delusions): none reported, attempting to manipulate staff for d/c Thought Content (Other): none reported, appropriate Thought Content (Aggressive): none reported Perception (Hallucinations): none reported Perception (Other): none reported Cognition (Impairment of): none reported Cognition(Intelligence Est.): average Oriented: Awake, Alert, Oriented times three Insight: poor Judgment: Poor Psychosis: Denies DIAGNOSES: Bipolar Depression ASSESSMENT: Patient is mildly anxious and having medications changed and not being able to leave Friday, was informed we cannot confirm when he leaves. Agrees to medications and workup of ankle swelling. Denies SI/HI, hallucinations, delusions. Decreased lyrica from 200 mg to 100 mg TID, likely has not been taking the medication and re-started after admitted. Should consider tapering of the medication. Echo, EKG, troponins should be followed up. MANAGEMENT PLAN: continue plan. Medications: Continue latuda 40mg bid for bipolar depression Continue trazodone 100mg qhs prn insomnia Decreased lyrica from 200 mg TID to 100 TID TIME SPENT: 10 minutes. Vital Signs Vital Signs Date Time Temp Pulse Resp B/P (MAP) Pulse Ox O2 Delivery O2 Flow Rate FiO2 11/29/18 06:32 98.4 91 18 148/80 (102) 3/30/19 08:35 Room Air 11/27/18 10:08 99 Laboratory Data 24H Labs Laboratory Tests 2 11/28/18 12:59: Total Creatine Kinase 145, Creatine Kinase MB 2.0, Creatine Kinase MB Relative Index 1.03, Troponin I < 0.02 11/29/18 06:47: Estimated Mean Plasma Glucose 91, Hemoglobin A1c 4.8, Triglycerides Level 202H, LDL Cholesterol 64, Total Cholesterol 147, Non-HDL Cholesterol (LDL + VLDL) 104, Total HDL Cholesterol 43, Cholesterol/HDL Ratio 3.418 Current Medications Current Medications Acetaminophen (Tylenol Tab) 650 mg Q6HP PRN PO HEADACHE or DISCOMFORT Last administered on 11/28/18at 15:49; Start 11/24/18 at 22:00 Al Hydrox/Mg Hydrox/Simethicone (Mylanta) 30 ml Q4HP PRN PO HEARTBURN/INDIGESTION; Start 11/24/18 at 22:00 Albuterol Sulfate (Proventil, Ventolin Hfa) 2 puff Q6HP PRN INH SHORTNESS OF BREATH; Start 11/25/18 at 02:00 Amphetamine/ Dextroamphetamine (Adderall Xr) 20 mg BID@0800,1400 PO Last administered on 11/29/18at 08:26; Start 11/25/18 at 08:00 Diphenhydramine HCl (Benadryl) 50 mg TID PO Last administered on 11/28/18at 13:22; Start 11/28/18 at 13:00; Stop 11/28/18 at 16:00; Status DC Diphenhydramine HCl (Benadryl) 50 mg TID PO Last administered on 11/29/18at 08:26; Start 11/28/18 at 13:00 Home Med (Med Rec Complete!) ASDIRECTED XX ; Start 11/24/18 at 20:15; Stop 11/24/18 at 20:15; Status DC Lurasidone HCl (Latuda) 40 mg DAILY@08 PO Last administered on 11/29/18at 08:26; Start 11/26/18 at 08:00 Lurasidone HCl (Latuda) 40 mg DAILY@18 PO Last administered on 11/28/18at 17:27; Start 11/25/18 at 18:00 Magnesium Hydroxide (Milk Of Magnesia) 30 ml DAILYPRN PRN PO CONSTIPATION Last administered on 11/27/18 15:52; Start 11/24/18 at 22:00 Nicotine (Nicoderm Cq 21mg) 1 patch DAILY PRN TD Craving; Start 11/24/18 at 22:00 Olanzapine (ZyPREXA ZYDIS) 5 mg Q4HP PRN PO AGITATION Last administered on 11/29/18 09:14; Start 11/24/18 at 22:00 Oxycodone HCl (Roxicodone, Oxyir) 5 mg BIDP PRN PO pain Last administered on 11/28/18 20:59; Start 11/25/18 at 02:00 Pregabalin (Lyrica) 200 mg TID PO Last administered on 11/29/18 08:26; Start 11/25/18 at 02:00 Trazodone HCl (Desyrel) 50 mg QHSP PRN PO INSOMNIA Last administered on 11/26/18 20:43; Start 11/24/18 at 22:00; Stop 11/27/18 at 10:00; Status DC Trazodone HCl (Desyrel) 100 mg QHSP PRN PO INSOMNIA Last administered on 11/28/18 20:57; Start 11/27/18 at 10:00 Zolpidem Tartrate (Ambien) 10 mg QHS PO ; Start 11/25/18 at 02:00; Stop 11/25/18 at 02:00; Status DC Zolpidem Tartrate (Ambien) 10 mg QHS PO Last administered on 11/25/18 02:02; Start 11/25/18 at 02:00; Stop 11/25/18 at 12:16; Status DC Allergies Coded Allergies: fentanyl (Verified Allergy, Severe, arrest, 11/25/18) Penicillins (Verified Allergy, Intermediate, HIVES, 11/25/18) FISH (Verified Allergy, Unknown, 11/25/18) PEPPERS (Verified Allergy, Unknown, 11/25/18) onion (Verified Allergy, Unknown, 11/25/18) gabapentin (Verified Adverse Reaction, Intermediate, LEGS SWELL, 11/25/18) PASCALE NETTLES PGY-1 Nov 29, 2018 09:51
[2018-11-29] MEDS: oxyCODONE 5MG TAB PO PRN ×2 (12:02→21:32)
--- NOTE | 2018-11-29 13:05 | ECHO ---
DATE OF SERVICE: 11/28/2018 REFERRING PROVIDER: Dr. Barrie Cook REASON FOR ECHOCARDIOGRAM: Heart failure, unspecified. 2D MEASUREMENTS: IVS: 1.1 cm LV: 5.1 cm LVPW: 1.0 cm LA: 3.5 cm Aorta: 3.3 cm IVC: 2.1 cm DOPPLER MEASUREMENTS: Peak velocity across the aortic valve: 1.6 m/s Peak velocity across the LVOT: 1.4 m/s Peak gradient across the aortic valve: 11 mmHg Mean gradient across the aortic valve: 6.0 mmHg Mitral E: 0.83 Mitral A: 1.1 with a ratio of 0.8 Maximum tricuspid valve velocity: 2.5 m/s 2D COMMENTS: 1. Normal left ventricular size, wall thickness, and normal global left ventricular systolic function. The estimated left ventricular systolic ejection fraction is 65-70%. 2. Normal left atrium. Normal right atrium and right ventricle. 3. The atrial septum appeared to be normal without evidence of defect or shunt. 4. Normal aortic root. 5. Trace pericardial effusion noted posteriorly at the base of the left ventricle, no evidence of cardiac tamponade. 6. The aortic valve, mitral valve, tricuspid valve and pulmonic valve appeared to be normal. The proximal pulmonary artery branches also appeared to be normal in size. 7. The inferior vena cava was mildly enlarged, central venous pressure might be elevated. Doppler, it detects trace mitral regurgitation and mild tricuspid regurgitation. The calculated pulmonary artery systolic pressure varied between 30 to 40 mmHg. Abnormal relaxation pattern was noted across the mitral valve leaflets consistent with features of grade 1 left ventricular diastolic dysfunction. IMPRESSION: 1. Normal global left ventricular systolic function. There were some features of left ventricular diastolic dysfunction, grade 1. 2. Trace mitral regurgitation. 3. Mild tricuspid regurgitation with mild pulmonary hypertension. 4. Trace pericardial effusion noted at the base of the left ventricle, no evidence of cardiac tamponade.
[2018-11-29 18:30] VITALS: BP 148/80
[2018-11-29] MEDS: traZODone 100 MG TAB PO PRN (21:32)
--- NOTE | 2018-11-29 22:56 | ECGEPIP ---
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 MAY BE RELATED TO THE UNDERLYING RIGHT BUNDLE-BRANCH BLOCK COMPARED TO THE LAST 3 TRACINGS IN THE SYSTEM, NO SIGNIFICANT CHANGES Electronically Signed On 11-29-2018 22:55:34 EDT by Gio Cervantes
[2018-11-30 06:43] VITALS: BP 125/77
[2018-11-30] MEDS: diphenhydrAMINE 50 MG CAP PO SCH (08:27)
[2018-11-30] MEDS: PREGABALIN 100 MG CAP (LYRICA) PO SCH (08:28)
[2018-11-30] MEDS: LURASIDONE HCL 40 MG TAB (LATUDA) PO SCH (08:29)
[2018-11-30] MEDS: AMPHETAMINE/DEXTROAMPHETAMINE 5 MG *ER* CAPSULE (ADDERALL XR) PO SCH (09:11)
--- NOTE | 2018-11-30 09:14 | MHDSPDOC ---
[facility] Discharge Summary Discharge Summary DATE OF ADMISSION: Nov 24, 2018 at 9:40 pm DATE OF DISCHARGE: November 30, 2018 DISCHARGE DIAGNOSES: Bipolar Depression REASON FOR ADMISSION: Patient is a 38 -year-old , male, with a history of bipolar depression and SA who presented to the ED after encouraged him to due to intentional OD on Ambien nights of 11/20/18 and again 11/23/18 (took 14 10mg). Pt in the ED upset he's still alive and frustrated OD didn't kill him. Pt endorsing worsening depression over the past 3 months due to unknown cause. Per ED he is co-parenting his 7y/o son with his ex- and has residential custody of him and his ex- is currently dating someone but denies those are causing his depression. He denied HI, hallucinations, delusions in the ED. He continued to endorse SI with intent. CONSULTANTS INVOLVED: none TREATMENT AND PROGRESS ON THE UNIT : Pt was admitted to [facility], seen for psychiatric assessment and started on latuda 40mg bid. He was provided trazodone 100mg qhs prn insomnia. Pt found his medications beneficial and tolerated them well. He attended groups daily during his stay. His symptoms improved with treatment. On day of discharge he denied depression, anxiety, i nsomnia, SI/HI, hallucinations, delusions. He was discharged home with follow- up at [facility]. He felt safe for discharge. DISCHARGE ASSESSMENT: Pt seen and states his mood is good just worried that his ex- has left the state with his son that pt has legal custody of as her phone is off. Plans to go home and call the authorities to put out Roxanne Alert if her phone is still off and can't contact her. States he has a supportive friend he has been speaking to about his son and aid him with locating his son. States he's tolerating his medication and finding it beneficial. Denies SI. Endorses improved anxiety overall. States trazodone is beneficial sleep. Is attending groups and finding the helpful. Denies depression, anxiety, insomnia, SI/HI, hallucinations, delusions. Feels safe to be discharged home. MENTAL STATUS EXAMINATION ON DISCHARGE: General Appearance: well groomed, appears stated age, own clothing Build: average Demeanor: cooperative, worried to find out where his son is and hoping his didn't leave the state with his son (pt has custody of son) Eye Contact: average Activity: anxious, cooperative Behavior: cooperative Speech: clear, spontaneous, reg/rate,rhythm,volume Mood: euthymic, full Mood "good just worried about my son" Affect: euthymic, full Thought Process: logical/linear, worried about son's location, intact Thought Content (Delusions): none reported Thought Content (Other): none reported, appropriate Thought Content (Aggressive): none reported Perception (Hallucinations): none reported Perception (Other): none reported Cognition (Impairment of): none reported Cognition(Intelligence Est.): average Oriented: Awake, Alert, Oriented times three Insight: good Judgment: good Psychosis: Denies MEDICATIONS ON DISCHARGE: latuda 40mg bid for bipolar depression trazodone 100mg qhs prn insomnia PLAN/FOLLOWUP ARRANGEMENTS: D/c home with follow-up at [facility]. The amount of time spent in the coordination of care for this patient was approximately 30 minutes. Vital Signs/I&Os Vital Signs Date Time Temp Pulse Resp B/P (MAP) Pulse Ox O2 Delivery O2 Flow Rate FiO2 11/30/18 06:43 97.0 90 14 125/77 (93) 11/28/18 08:35 Room Air 11/27/18 10:08 99 Medications Scheduled Amphetamine/Dextroamphetamine (Adderall Xr 20 mg) 1 Cap Cap, 20 MG PO BID, (Reported) TAKES MORNING AND EARLY AFTERNOON Pregabalin (Lyrica) 200 Mg Cap, 200 MG PO TID, (Reported) Zolpidem Tartrate (Ambien) 10 Mg Tab, 10 MG PO QHS, (Reported) Scheduled PRN Albuterol Sulfate (Ventolin Hfa) 108 Mcg/Act Aer, 2 PUFF INH Q6H PRN for SHORTNESS OF BREATH, (Reported) Oxycodone HCl (Oxycodone HCl) 5 Mg Tab, 5 MG PO BID PRN for PAIN, (Reported) Allergies Coded Allergies: fentanyl (Verified Allergy, Severe, arrest, 11/25/18) Penicillins (Verified Allergy, Intermediate, HIVES, 11/25/18) FISH (Verified Allergy, Unknown, 11/25/18) PEPPERS (Verified Allergy, Unknown, 11/25/18) onion (Verified Allergy, Unknown, 11/25/18) gabapentin (Verified Adverse Reaction, Intermediate, LEGS SWELL, 11/25/18) MINNA COSTA DO Nov 30, 2018 9:14 am
[2018-11-30] MEDS: ACETAMINOPHEN TAB 650MG DOSE (2X325MG) PO PRN (09:55)
[2018-11-30] MEDS ORDERED: LATU40TA PO (10:59)
[2018-11-30] MEDS ORDERED: TRAZ10TA PO (10:59)
== END 2018-11-30 11:15 | disposition home or self-care (01) | DRG 885 ==
LOC: M ED 17:42 → M ED INP 21:40 → M PSY 11-25 01:10
PROVIDERS: ADMIT Psychiatry & Neurology Psychiatry; ATTEND Psychiatry & Neurology Psychiatry
DX: F31.9 Bipolar disorder, unspecified (principal); R45.851 Suicidal ideations; Z79.899 Other long term (current) drug therapy; Z88.0 Allergy status to penicillin; Z88.8 Allergy status to other drugs, medicaments and biological substances; Z91.018 Allergy to other foods; Z91.013 Allergy to seafood; G47.00 Insomnia, unspecified; J45.909 Unspecified asthma, uncomplicated; M54.5 Low back pain; F41.9 Anxiety disorder, unspecified; G89.29 Other chronic pain

== ENCOUNTER 2021-08-04 09:59 | Emergency (ER) | payer MEDICARE, MEDICAID ==
[~2021-08-04] VITALS: Ht 188 cm; Wt 97.2 kg
[~2021-08-04 09:59] MED LIST changes: +ADDE20CA3 PO; -DULO30CA PO; +DULO30CA9 PO; +LATU40TA PO; -NAPR-50 PO; +NAPR-837 PO; -OLAN15TA PO; +OLAN15TA13 PO; +OXYC-1 PO; -OXYC15TA76 PO; +OXYC1TAB23 PO; -PERCOCET PO; +TRAZ1TAB12 PO
[2021-08-04 10:01] VITALS: BP 164/81
[2021-08-04] MEDS ORDERED: NAPR220C14 PO (10:15)
== END 2021-08-04 12:23 | disposition home or self-care (01) ==
LOC: M ED 09:59
DX: U07.1 COVID-19 (principal); J02.9 Acute pharyngitis, unspecified; Z88.0 Allergy status to penicillin; Z88.8 Allergy status to other drugs, medicaments and biological substances; Z91.018 Allergy to other foods

== ENCOUNTER 2022-07-05 16:35 | Inpatient (IN) | payer MEDICAID, MEDICARE ==
[~2022-07-05] VITALS: Ht 188 cm; Wt 98.3 kg
[~2022-07-05 16:35] MED LIST changes: -HYDR2INJ SC; +HYDR2INJ9 SC; -LATU40TA PO; +LATU40TA2 PO; +NAPR220C14 PO
[2022-07-05] MEDS ORDERED: CHARCOAL ACTIVATED LIQUID 25 GM/120 ML BTL PO ONE (17:30)
[2022-07-05 18:29] LABS: VENOUS BASE EXCESS 0.5 (-2.0-2.0); VENOUS HCO3 25.8 MEQ/L (23.0-27.0); VENOUS O2 SATURATION 70.2 % (60.0-80.0); VENOUS PARTIAL PRESSURE CO2 43.6 mmHg (38.0-50.0); VENOUS STANDARD HCO3 24.2 MEQ/L; VENOUS TOTAL CO2 27.1 MEQ/L (24.0-28.0)
[2022-07-05] MEDS ORDERED: ACETYLCYSTEINE IV ONE ×2 (18:30→20:00)
[2022-07-05] MEDS ORDERED: D5W IV ONE ×2 (18:30→20:00)
[2022-07-05 18:36] LABS: BASO % 0.4 % (0.0-1.0); EOS # 0.2 10^3/uL (0.0-0.5); EOS % 1.5 % (0.0-3.0); HEMATOCRIT 45.2 % (42.0-52.0); HEMOGLOBIN 15.8 g/dl (13.5-17.5); LYMPH # 2.4 10^3/uL (1.5-5.0); LYMPH % 24.8 % (24.0-44.0); MEAN CORPUSCULAR HEMOGLOBIN 34.6 pg (27.0-33.0); MEAN CORPUSCULAR VOLUME 99.1 fl (80.0-96.0); MONO # 0.8 10^3/uL (0.0-0.8); MONO % 8.4 % (2.0-8.0); NEUTROPHILS # 6.4 10^3/uL (1.5-8.5); NEUTROPHILS % 64.6 % (36.0-66.0); PLATELET COUNT, AUTOMATED 289 10^3/uL (150-450); RED BLOOD COUNT 4.56 10^6/uL (4.30-6.10); WHITE BLOOD COUNT 9.8 10^3/uL (4.0-10.0)
[2022-07-05 18:52] LABS: OSMOLALITY SERUM 291 MOSM/KG (275-295)
[2022-07-05 19:04] LABS: RSV AMPLIFICATION NEGATIVE (NEGATIVE)
[2022-07-05 19:19] LABS: ACETAMINOPHEN LEVEL < 2.0 UG/ML (10.0-30.0); ALKALINE PHOSPHATASE 101 U/L (45-117); ALT/SGPT 23 U/L (12-78); AST/SGOT 7 U/L (7-37); BILIRUBIN,DIRECT 0.2 MG/DL (0.0-0.2); BILIRUBIN,TOTAL 0.7 MG/DL (0.2-1.0); BLOOD UREA NITROGEN 15 MG/DL (7-18); CALCIUM LEVEL 9.5 MG/DL (8.5-10.1); CARBON DIOXIDE LEVEL 25 MEQ/L (21-32); CHLORIDE LEVEL 106 MEQ/L (98-107); CREATININE FOR GFR 1.16 MG/DL (0.70-1.30); ETHYL ALCOHOL (ETHANOL) < 0.003 % (0.000-0.010); GLOMERULAR FILTRATION RATE > 60.0 (>60); GLUCOSE, FASTING 90 MG/DL (70-100); POTASSIUM SERUM 3.7 MEQ/L (3.5-5.1); SALICYLATE LEVEL 2.4 MG/DL (5.0-30.0); SODIUM LEVEL 138 MEQ/L (136-145); THYROID STIMULATING HORMONE 0.896 uIU/ML (0.358-3.740)
[2022-07-05 19:49] LABS: AMPHETAMINES LEVEL URINE POSITIVE (NEGATIVE); BARBITURATES URINE NEGATIVE (NEGATIVE); BENZODIAZEPINES URINE NEGATIVE (NEGATIVE); CANNABINOIDS URINE NEGATIVE (NEGATIVE); COCAINE METABOLITE URINE NEGATIVE (NEGATIVE); METHADONE URINE NEGATIVE (NEGATIVE); OPIATES URINE NEGATIVE (NEGATIVE); PHENCYCLIDINE URINE NEGATIVE (NEGATIVE)
[2022-07-05] MEDS ORDERED: HOME MED LIST COMPLETE! XX SCH (22:50)
[2022-07-06] MEDS ORDERED: LORazepam 2 MG TAB PO STA (09:11)
[2022-07-06] MEDS ORDERED: MAALOX 30 ML SUSP *UDC PO PRN (11:00)
[2022-07-06] MEDS ORDERED: MOM 30ML SUSPENSION UDC PO PRN (11:00)
[2022-07-06] MEDS ORDERED: LORazepam 2 MG TAB PO PRN (11:00)
[2022-07-06] MEDS: THIAMINE 100 MG TAB PO SCH ×2 (11:42→20:00)
[2022-07-06] MEDS: MULTIVITAMINS/MINERALS THERAP 1 TAB PO SCH (11:44)
[2022-07-06] MEDS: FOLIC ACID 1MG TAB PO SCH (13:56)
[2022-07-06] MEDS: LORazepam 1 MG TAB PO PRN (13:57)
[2022-07-06 19:45] VITALS: BP 131/65
[2022-07-06 21:45] VITALS: BP 115/55
[2022-07-06] MEDS: ACETAMINOPHEN TAB 650MG DOSE (2X325MG) PO PRN (22:03)
[2022-07-06 23:45] VITALS: BP 118/66
[2022-07-07 05:45] VITALS: BP 108/65
[2022-07-07] MEDS: MULTIVITAMINS/MINERALS THERAP 1 TAB PO SCH (08:58)
[2022-07-07] MEDS: FOLIC ACID 1MG TAB PO SCH (08:58)
[2022-07-07] MEDS: THIAMINE 100 MG TAB PO SCH (08:58)
[2022-07-07] MEDS ORDERED: INFLUENZA QUADRIVALENT PF VACCINE 0.5ML SYRINGE IM.IMMUN ONE (09:00)
[2022-07-07] MEDS: LORazepam 1 MG TAB PO PRN (09:01)
[2022-07-07] MEDS: NICOTINE 21MG/24HR 1 EA TRANSDERMAL TD SCH (12:13)
[2022-07-07 13:45] VITALS: BP 145/58
[2022-07-07 18:22] VITALS: BP 145/58
[2022-07-07] MEDS ORDERED: OLANZapine 5 MG TAB PO SCH (21:00)
[2022-07-07] MEDS: traZODone 50 MG TAB PO PRN (21:33)
[2022-07-08 06:16] VITALS: BP 110/59
[2022-07-08] MEDS: FOLIC ACID 1MG TAB PO SCH (09:45)
[2022-07-08] MEDS: MULTIVITAMINS/MINERALS THERAP 1 TAB PO SCH (09:45)
[2022-07-08] MEDS: NICOTINE 21MG/24HR 1 EA TRANSDERMAL TD SCH (09:48)
[2022-07-08] MEDS: buPROPion **XL** TABLET 150MG (WELLBUTRIN XL) PO SCH (12:11)
[2022-07-08] MEDS: DIVALPROEX 250MG *ER* TAB PO SCH (12:11)
[2022-07-08] MEDS: OLANZapine ORAL DISINTEGRATING TAB 5MG PO PRN (14:54)
[2022-07-08 16:32] VITALS: BP 131/70
[2022-07-08] MEDS: ACETAMINOPHEN TAB 650MG DOSE (2X325MG) PO PRN (16:49)
[2022-07-09 06:28] VITALS: BP 105/63
[2022-07-09] MEDS: MULTIVITAMINS/MINERALS THERAP 1 TAB PO SCH (08:58)
[2022-07-09] MEDS: FOLIC ACID 1MG TAB PO SCH (08:58)
[2022-07-09] MEDS: buPROPion **XL** TABLET 150MG (WELLBUTRIN XL) PO SCH (08:58)
[2022-07-09] MEDS: NICOTINE 21MG/24HR 1 EA TRANSDERMAL TD SCH (08:58)
[2022-07-09] MEDS: DIVALPROEX 250MG *ER* TAB PO SCH (08:58)
[2022-07-09] MEDS: OLANZapine ORAL DISINTEGRATING TAB 5MG PO PRN (09:38)
[2022-07-09 16:26] VITALS: BP 116/60
[2022-07-09] MEDS: traZODone 50 MG TAB PO PRN (19:53)
[2022-07-09] MEDS ORDERED: DIVALPROEX 250MG *ER* TAB PO SCH (21:00)
[2022-07-10 06:22] VITALS: BP 104/56
[2022-07-10] MEDS: MULTIVITAMINS/MINERALS THERAP 1 TAB PO SCH (09:00)
[2022-07-10] MEDS: buPROPion **XL** TABLET 150MG (WELLBUTRIN XL) PO SCH (09:00)
[2022-07-10] MEDS: NICOTINE 21MG/24HR 1 EA TRANSDERMAL TD SCH (09:00)
[2022-07-10] MEDS: FOLIC ACID 1MG TAB PO SCH (09:00)
[2022-07-10] MEDS ORDERED: traZODone 50 MG TAB PO PRN (09:05)
[2022-07-10 16:35] VITALS: BP 133/66
[2022-07-10] MEDS: OLANZapine ORAL DISINTEGRATING TAB 5MG PO PRN (16:39)
[2022-07-10] MEDS ORDERED: DIVALPROEX 250MG *ER* TAB PO SCH (21:00)
[2022-07-11] VITALS (7 sets, daily range): BP systolic 98–144; BP diastolic 50–81
[2022-07-11] MEDS ORDERED: ACETAMINOPHEN 500 MG TAB PO ONE (08:10)
[2022-07-11] MEDS: NICOTINE 21MG/24HR 1 EA TRANSDERMAL TD SCH (09:00)
[2022-07-11] MEDS: buPROPion **XL** TABLET 150MG (WELLBUTRIN XL) PO SCH (09:38)
[2022-07-11] MEDS: MIDODRINE 5 MG TAB PO SCH ×3 (09:39→16:00)
[2022-07-11] MEDS: DIVALPROEX 500MG *ER* TAB PO SCH (12:40)
[2022-07-11] MEDS ORDERED: IBUPROFEN 800 MG TAB PO ONE (13:55)
[2022-07-11] MEDS ORDERED: ACETAMINOPHEN 500 MG TAB PO PRN (14:00)
[2022-07-11] MEDS ORDERED: traMADol 50 MG TAB PO PRN (14:45)
[2022-07-11] MEDS: RAMELTEON 8 MG TAB (ROZEREM) PO SCH (22:13)
[2022-07-11] MEDS: DIVALPROEX 250MG *ER* TAB PO SCH (22:14)
[2022-07-11] MEDS: ACETAMINOPHEN 500 MG TAB PO SCH (22:15)
[2022-07-12 06:11] VITALS: BP 120/64
[2022-07-12] MEDS: MIDODRINE 5 MG TAB PO SCH ×3 (08:00→15:44)
[2022-07-12] MEDS: NICOTINE 21MG/24HR 1 EA TRANSDERMAL TD SCH (08:37)
[2022-07-12] MEDS: IBUPROFEN 600MG TAB PO SCH ×3 (08:38→18:00)
[2022-07-12 08:39] VITALS: BP 109/72
[2022-07-12] MEDS: DIVALPROEX 500MG *ER* TAB PO SCH (08:40)
[2022-07-12] MEDS: buPROPion **XL** TABLET 150MG (WELLBUTRIN XL) PO SCH (08:40)
[2022-07-12] MEDS ORDERED: ACETAMINOPHEN 500 MG TAB PO SCH (09:00)
[2022-07-12] MEDS: ACETAMINOPHEN 500 MG TAB PO SCH ×2 (10:00→20:26)
[2022-07-12 12:06] VITALS: BP 108/70
[2022-07-12 15:55] VITALS: BP 110/72
[2022-07-12] MEDS: DIVALPROEX 250MG *ER* TAB PO SCH (20:26)
[2022-07-12] MEDS: RAMELTEON 8 MG TAB (ROZEREM) PO SCH (20:26)
[2022-07-13 06:25] VITALS: BP 123/63
[2022-07-13] MEDS: MIDODRINE 5 MG TAB PO SCH ×3 (08:00→16:00)
[2022-07-13] MEDS: NICOTINE 21MG/24HR 1 EA TRANSDERMAL TD SCH (09:00)
[2022-07-13] MEDS: DIVALPROEX 500MG *ER* TAB PO SCH (09:16)
[2022-07-13] MEDS: IBUPROFEN 600MG TAB PO SCH ×3 (09:17→18:10)
[2022-07-13] MEDS: buPROPion **XL** TABLET 150MG (WELLBUTRIN XL) PO SCH (09:18)
[2022-07-13] MEDS: ACETAMINOPHEN 500 MG TAB PO SCH ×2 (09:19→21:00)
[2022-07-13 12:17] VITALS: BP 120/72
[2022-07-13 16:19] VITALS: BP 122/69
[2022-07-13] MEDS: RAMELTEON 8 MG TAB (ROZEREM) PO SCH (21:15)
[2022-07-13] MEDS: DIVALPROEX 250MG *ER* TAB PO SCH (21:16)
[2022-07-14 06:16] VITALS: BP 119/66
[2022-07-14] MEDS: MIDODRINE 5 MG TAB PO SCH ×3 (08:00→16:00)
[2022-07-14] MEDS: IBUPROFEN 600MG TAB PO SCH ×3 (08:22→18:02)
[2022-07-14] MEDS: NICOTINE 21MG/24HR 1 EA TRANSDERMAL TD SCH (08:22)
[2022-07-14] MEDS: buPROPion **XL** TABLET 150MG (WELLBUTRIN XL) PO SCH (08:22)
[2022-07-14] MEDS: DIVALPROEX 500MG *ER* TAB PO SCH (08:22)
[2022-07-14 08:25] VITALS: BP 120/70
[2022-07-14] MEDS: ACETAMINOPHEN 500 MG TAB PO SCH ×2 (10:00→19:56)
[2022-07-14 11:41] VITALS: BP 120/71
[2022-07-14 16:17] VITALS: BP 119/72
[2022-07-14] MEDS: RAMELTEON 8 MG TAB (ROZEREM) PO SCH (19:58)
[2022-07-14] MEDS: DIVALPROEX 250MG *ER* TAB PO SCH (19:58)
[2022-07-15 06:38] VITALS: BP 126/74
[2022-07-15] MEDS: NICOTINE 21MG/24HR 1 EA TRANSDERMAL TD SCH (07:55)
[2022-07-15] MEDS: DIVALPROEX 500MG *ER* TAB PO SCH (07:55)
[2022-07-15] MEDS: buPROPion **XL** TABLET 150MG (WELLBUTRIN XL) PO SCH (07:55)
[2022-07-15] MEDS: IBUPROFEN 600MG TAB PO SCH ×3 (07:56→17:34)
[2022-07-15 07:57] VITALS: BP 136/76
[2022-07-15] MEDS: MIDODRINE 5 MG TAB PO SCH ×2 (07:57→12:00)
[2022-07-15] MEDS: ACETAMINOPHEN 500 MG TAB PO SCH ×2 (11:06→20:56)
[2022-07-15 12:10] VITALS: BP 131/71
[2022-07-15 18:16] VITALS: BP 150/87
[2022-07-15] MEDS: RAMELTEON 8 MG TAB (ROZEREM) PO SCH (20:55)
[2022-07-15] MEDS: DIVALPROEX 250MG *ER* TAB PO SCH (20:55)
[2022-07-15] MEDS: OLANZapine ORAL DISINTEGRATING TAB 5MG PO PRN (20:56)
[2022-07-16 06:33] VITALS: BP 115/68
[2022-07-16] MEDS: NICOTINE 21MG/24HR 1 EA TRANSDERMAL TD SCH (08:20)
[2022-07-16] MEDS: buPROPion **XL** TABLET 150MG (WELLBUTRIN XL) PO SCH (08:37)
[2022-07-16] MEDS: IBUPROFEN 600MG TAB PO SCH (08:37)
[2022-07-16] MEDS: DIVALPROEX 500MG *ER* TAB PO SCH (08:37)
[2022-07-16] MEDS ORDERED: DEPA250T2 PO (09:26)
[2022-07-16] MEDS ORDERED: DEPA500T2 PO (09:26)
[2022-07-16] MEDS ORDERED: BUPR150T12 PO (09:26)
[2022-07-16] MEDS ORDERED: ABIL1TAB11 PO (09:26)
[2022-07-16] MEDS ORDERED: RAME8TAB2 PO (09:26)
[2022-07-16] MEDS: ACETAMINOPHEN 500 MG TAB PO SCH (10:00)
== END 2022-07-16 10:41 | disposition home or self-care (01) | DRG 885 ==
LOC: M ED 16:35 → M ED INP 07-06 10:56 → M PSY 07-06 12:59
PROVIDERS: ADMIT Psychiatry & Neurology Psychiatry; ATTEND Psychiatry & Neurology Psychiatry
DX: F31.30 Bipolar disorder, current episode depressed, mild or moderate severity, unspecified (principal); R45.851 Suicidal ideations; G90.59 Complex regional pain syndrome I of other specified site; Z91.013 Allergy to seafood; Z91.018 Allergy to other foods; Z88.5 Allergy status to narcotic agent; Z88.0 Allergy status to penicillin; Z88.8 Allergy status to other drugs, medicaments and biological substances; F17.210 Nicotine dependence, cigarettes, uncomplicated; F15.10 Other stimulant abuse, uncomplicated

== ENCOUNTER → 2022-12-02 | Outpatient (REF) ==
[~2022-12-02] MED LIST changes: +ABIL1TAB11 PO; +BUPR150T12 PO; +DEPA250T2 PO; +RAME8TAB2 PO
== END ==
LOC: M EMP 08:12
PROVIDERS: ATTEND Family Medicine
DX: Z11.52 Encounter for screening for COVID-19 (principal)